=== PATIENT | male | born 1955 | race Caucasian/White ===

== ENCOUNTER 2018-08-30 01:26 | Emergency (ER) | payer BC ==
[2018-08-30] MEDS ORDERED: Famotidine TAB* 20 MG PO ONE (01:49)
--- NOTE | 2018-08-30 01:56 | ED ---
Skin Complaint - HPI Summary HPI Summary: This patient is a 62 year old M presenting to [facility] with a chief complaint of red spots diffuse through his LE bilat, hips, lower back, and torso since 00:15 today. Patient denies difficulty breathing. These symptoms developed after eating [employer] ice cream (vanilla with chocolate, peanuts), leftover chicken and rice. Patient took Benadryl [employer]. He has not been on any new medications since November. - History of Current Complaint Chief Complaint: EDRashSkinAbscess Time Seen by Provider: 08/30/18 01:44 Stated Complaint: POSS ALLERGIC REACTION Hx Obtained From: Patient Onset/Duration: Started Hours Ago - 00:15 today, Still Present Timing: Constant Pain Intensity: 0 Pain Scale Used: 0-10 Numeric Skin Location: Chest, Leg, Other: - Back Character: Hives, Redness Associated Signs & Symptoms: Difficulty Breathing - Denies - Allergy/Home Medications Allergies/Adverse Reactions: Allergies Allergy/AdvReac Type Severity Reaction Status Date / Time Penicillins Allergy Severe Unknown Verified 02/01/18 09:00 Reaction Details PMH/Surg Hx/FS Hx/Imm Hx Endocrine/Hematology History: Denies: Hx Diabetes Cardiovascular History: Reports: Hx Hypertension, Other Cardiovascular Problems/ Disorders - HLD Infectious Disease History: No Infectious Disease History: Denies: Traveled Outside the [place] in Last 30 Days - Family History Known Family History: Positive: Cardiac Disease, Hypertension, Other - Dementia (mild and late) - Social History Alcohol Use: None Substance Use Type: Reports: None Smoking Status (MU): Never Smoked Tobacco Review of Systems Negative: Shortness Of Breath Positive: Rash - Red hives diffuse through his LE bilat, hips, lower back, and torso All Other Systems Reviewed And Are Negative: Yes Physical Exam - Summary Physical Exam Summary: Appearance: Well appearing, no pain distress Skin: 3-4 scattered urticaria Head/face: normal Eyes: EOMI, RACHEL ENT: mucous membranes moist Neck: supple, non-tender Respiratory: CTA, breath sounds present Cardiovascular: RRR, pulses symmetrical Abdomen: non-tender, soft Bowel Sounds: present Musculoskeletal: normal, strength/ROM intact Neuro: normal, sensory motor intact, A&Ox3 Triage Information Reviewed: Yes Vital Signs On Initial Exam: Initial Vitals Temp Pulse Resp BP Pulse Ox 97.8 F 84 20 163/91 96 08/30/18 01:29 08/30/18 01:29 08/30/18 01:29 08/30/18 01:29 08/30/18 01:29 Vital Signs Reviewed: Yes Diagnostics - Vital Signs Vital Signs Temp Pulse Resp BP Pulse Ox 08/30/18 01:29 97.8 F 84 20 163/91 96 - Laboratory Lab Statement: Any lab studies that have been ordered have been reviewed, and results considered in the medical decision making process. Course/Dx - Course Course Of Treatment: Nurse's note reviewed. Patient with 3 or 4 urticaria that were worse prior to taking Benadryl. Had ice cream with peanuts in it. This is possible allergen. Patient will avoid. Referred to primary for allergy testing. Pepcid here, continue same at home. Mild symptoms. - Differential Diagnoses - Skin Complaint Differential Diagnoses: Drug Rash, Local Allergic Reaction, Medication; Adverse Reaction, Urticaria - Diagnoses Provider Diagnoses: Urticaria, Elevated blood pressure reading Discharge - Sign-Out/Discharge Documenting (check all that apply): Patient Departure - D/C - Discharge Plan Condition: Improved Disposition: HOME Prescriptions: Famotidine TAB* [Pepcid 20 MG TAB*] 20 mg PO BID PRN #20 tab PRN Reason: allergy symptoms/hives Patient Education Materials: Urticaria (ED) Referrals: Ally Gurrola [Primary Care Provider] - Additional Instructions: Call your doctor first thing in the morning to schedule prompt follow-up. You may need allergy testing. Avoid peanuts. Return if worse, throat, lip or tongue swelling, difficulty breathing, worse or other concerns. - Billing Disposition and Condition Condition: IMPROVED Disposition: Home - Attestation Statements Document Initiated by Michelleibe: Yes Documenting Scribe: Blaine Kimble Provider For Whom Michelleibe is Documenting (Include Credential): Adalberto Delarosa MD Scribe Attestation: Blaine Srinivasan scribed for Adalberto Delarosa MD on 08/30/18 at 0340. Scribe Documentation Reviewed: Yes Provider Attestation: The documentation as recorded by the Blaine bridges accurately reflects the service I personally performed and the decisions made by me, Adalberto Delarosa MD Status of Scribe Document: Viewed
[2018-08-30 01:58] VITALS: BP 163/99
== END 2018-08-30 01:58 | disposition home or self-care (01) ==
LOC: ED 01:26
DX: L50.9 Urticaria, unspecified (principal); I10 Essential (primary) hypertension; E78.5 Hyperlipidemia, unspecified; Z88.0 Allergy status to penicillin
CPT/HCPCS: 99282; A9270-GY

== ENCOUNTER → 2018-09-08 09:02 | Emergency (ER) | payer BC ==
[~2018-09-08 09:02] MED LIST: Iodixanol* (CONTRAST) 320 MG/ML 100 ML SDV IV ONE
--- OUTSIDE RECORDS SUMMARY | 2018-09-08 09:32 | XMS REPORT | Continuity of Care Document ---
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 Payers Type Date Identification Numbers Payment Provider Subscriber Policy Number: [id number] [facility] Ppo [employer]honathan Hdz Group Number: [id number] [address] [id number] PayID: [id number] [place] [address] Advance Directives Description No Information Available Problems Date Description Provider Status Onset: 03/22/2011 Benign essential hypertension Tenzin Schultz MD Active Onset: 03/22/2011 Mixed hyperlipidemia Tenzin Schultz MD Active Onset: 10/23/2013 Impaired fasting glycaemia Emma Tavarez MD Active Onset: 06/14/2014 Hemorrhoids Emma Tavarez MD Active Onset: 07/10/2015 Essential hypertension Emma Tavarez MD Active Onset: 03/22/2011 Gastroesophageal reflux disease Tenzin Schultz MD Inactive Inactive: 03/06/2014 Onset: 10/23/2013 Idiopathic peripheral neuropathy Emma Tavarez MD Resolved Resolved: 11/30/2013 Family History Date Family Member(s) Problem(s) Comments Father due to Stroke () Father due to Hypertension () : (2006) (age 88 Father due to Heart Disease Years) Mother Allergies Mother 94 Mother Hypertension Mother Hypothyroidism Mother Asthma Children All A&W. 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 Trying to improve Type/Frequency exercise routine. Allergies, Adverse Reactions, Alerts Date Description Reaction Status Severity Comments 08/25/2007 Penicillin Active Medications Medication Date Status Form Strength Qnty SIG Indications Ordering Provider Proctosol HC 07/26 Active Cream 2.5% 28.35 apply per 0gm rectum Ally bid-qid as Valery RN MS needed [employer] hemorrhoids Alprazolam 10/12 Active Tablets 0.5mg 20tab 09/13-1 by G47.00 s mouth as Ally needed for Valery RN MS sleep [employer] Clotrimazole/Be 10/12 Active Cream 1-0.05% 15gm apply twice B35.3 , tamethasone a day as Ally Dipropionate needed Valery RN MS toFEET till [employer] gone Atorvastatin 09/24 Active Tablets 10mg 45tab Take 09/13 E78.2 Calcium s Tablet By Ally Mouth Every C, RN MS Day [employer] Metformin HCL 09/07 Active Tablets ER 500mg 180ta Take 1 R73.01 , 24HR bs Tablet By Ally Mouth Two Valery RN MS Times Daily [employer] Loratadine 09/21 Active Tablets 10mg 90tab 1 po qd. J30.9 s Emma Bonner MD Cozaar 01/12 Active Tablets 50mg 90tab Take 1 I10 s Tablet By Ally Mouth Every C, RN MS Day [employer] Omeprazole Active Capsules DR 40mg 90cap 1 by mouth s every day Ally Rasmussen RN MS [employer] Hydrocortisone 07/26 Hx Cream 2.5% 30gm apply to area 2-3 Ally - times daily OLGA Rasmussen MS 07/26 x 10 days [employer] Fluticasone 09/24 Hx Suspension 50mcg/Act 1unit 1 spray b/l [place], s nostrils Emma - twice a day, MD Kailey 01/28 then january wean to 1 spray everyday, until sx resolution Crestor 01/13 Hx Tablets 5mg 1 by mouth 272.2 every other Emma - day - free MD Kailey 07/10 Zostavax 06/13 Hx Solution [id number]/ 1unit 0.65cc sc x1 Rec 0.65ML s Emma Bonner MD 07/11 Zetia 12/04 Hx Tablets 10mg 30tab 1 tab po s qday (not to Emma - fill only to MD Kailey 03/06 check the cost of copay) Welchol 11/30 Hx Packet 3.75gm 30uni 1 qnoon or ts qsupper (at Emma - least 4 hr MD Kailey 03/05 after metformin administrati on) Metformin HCL 04/25 Hx Tablets ER 750mg 60tab Take 1 Trab, 24HR s tablet by Tenzin - mouth daily 09/07 for 2 weeks, then 2 tablets daily Proctocream-HC 09/21 Hx Cream 2.5% 60gm apply twice [place] a day as Ally Rasmussen RN MS 07/26 [employer] Prilosec OTC 09/[address] 20mg OTC 1 po qd prn 787.20 Emma Bonner MD 03/06 530.81 Simvastatin 09/02/2006 - Hx Tablets 40mg 90tabs 1 po qd 272.2 Emma Tavarez 11/30/2013 MD Kailey Sonata 08/23/2005 - Hx Capsules 5mg 30caps 1 qhs prn 780.50 Trabout, 01/29/2016 sleep MD Tenzin Glucosamine/Clarke 08/23/2005 - Hx otc Trabout, droiti 09/21/2010 MD Tenzin Zyrtec 01/12/2005 - Hx Tablets 10mg 90tabs 1 po qd Trabout, 09/21/2010 MD Tenzin Proctocream HC 01/12/2005 - Hx Cream 2.5% 30gm apply bid Trabout, 09/21/2010 prney Dave MD Astelin Nasal 01/12/2005 - Hx Solution 137mcg 3Units 2 sprays Trabout, Lewis 09/21/2010 each nare cuco Dave MD Immunizations CPT Code Status Date Vaccine Lot # [id number] Given 06/26/2018 Influenza Vac, 3 Yrs & Older, Quadrivalent, [place], [place] Use 49[address] Given 06/18/2017 Afluria Or Fluvirin Flu Vac Intramuscular 59030 Given 06/30/2016 Influenza Vac, 3 Yrs & Older, Quadrivalent, Split, [place] Use 55348 Given 06/18/2016 Influenza Vac, 3 Yrs & Older, Quadrivalent, Split, Im Use 61999 Given 08/01/2015 Zoster (Zostavax) 54324 Given 03/05/2014 Pneumococcal 23 Immunization Adult Or [id number] Immunosuppressed Patient 34295 Given 10/02/2012 Tdap (Adacel) Ages 7 And Above Only [id number] 44293 Given 09/02/2000 Influenza Virus Vaccine, Whole Virus, Intramuscular Or Jet Inj. 91216 Given 06/26/1999 Immunization Td 7 Yrs Or Older Vital Signs Date Vital Result Comment 08/31/2018 7:50am Weight 224.38 lb Heart Rate 78 /min BP Systolic 147 mmHg BP Diastolic 85 mmHg Height 74 inches 6'2" BMI (Body Mass Index) 28.8 kg/m2 04/14/2018 8:01am Weight 220.25 lb Heart Rate 67 /min BP Systolic 181 mmHg BP Diastolic 83 mmHg BP Systolic Recheck 147 mmHg BP Diastolic Recheck 77 mmHg Height 74 inches 6'2" BMI (Body Mass Index) 28.3 kg/m2 10/12/2017 11:05am Weight 220.00 lb Heart Rate 64 /min BP Systolic 120 mmHg BP Diastolic 74 mmHg Height 74 inches 6'2" BMI (Body Mass Index) 28.2 kg/m2 02/17/2017 1:53pm Weight 218.50 lb Heart Rate 70 /min BP Systolic 137 mmHg BP Diastolic 74 mmHg Height 74 inches 6'2" BMI (Body Mass Index) 28.1 kg/m2 08/12/2016 8:07am Weight 216.12 lb Heart Rate 72 /min BP Systolic 144 mmHg BP Diastolic 80 mmHg Height 74 inches 6'2" BMI (Body Mass Index) 27.7 kg/m2 01/29/2016 8:11am Weight 214.12 lb Heart Rate 63 /min BP Systolic 132 mmHg BP Diastolic 84 mmHg Height 74 inches 6'2" BMI (Body Mass Index) 27.5 kg/m2 07/10/2015 9:21am Weight 212.31 lb Heart Rate 79 /min BP Systolic 127 mmHg BP Diastolic 75 mmHg Height 74 inches 6'2" BMI (Body Mass Index) 27.3 kg/m2 12/23/2014 8:35am Weight 213.00 lb Heart Rate 66 /min BP Systolic 123 mmHg BP Diastolic 72 mmHg Height 74 inches 6'2" BMI (Body Mass Index) 27.3 kg/m2 09/24/2014 8:15am Weight 211.38 lb Heart Rate 81 /min BP Systolic 124 mmHg BP Diastolic 78 mmHg Height 74 inches 6'2" BMI (Body Mass Index) 27.1 kg/m2 06/13/2014 9:57am Weight 211.00 lb Heart Rate 69 /min BP Systolic 128 mmHg BP Diastolic 79 mmHg Height 74 inches 6'2" BMI (Body Mass Index) 27.1 kg/m2 03/05/2014 8:28am Weight 209.00 lb Heart Rate 66 /min BP Systolic 123 mmHg BP Diastolic 76 mmHg Height 74 inches 6'2" BMI (Body Mass Index) 26.8 kg/m2 10/23/2013 8:10am Weight 212.00 lb Heart Rate 66 /min BP Systolic 149 mmHg BP Diastolic 91 mmHg Height 74 inches 6'2" BMI (Body Mass Index) 27.2 kg/m2 Urine Dipstick - Blood 1+ Urine Dipstick - Protein NEGATIVE Urine Dipstick - Glucose NEGATIVE 04/23/2013 8:50am Weight 216.00 lb Heart Rate 68 /min BP Systolic 130 mmHg BP Diastolic 75 mmHg 10/02/2012 8:02am Weight 215.00 lb Height 74 inches 6'2" BMI (Body Mass Index) 27.6 kg/m2 03/27/2012 8:14am Weight 220.00 lb Heart Rate 65 /min BP Systolic 133 mmHg BP Diastolic 76 mmHg 09/27/2011 8:02am Weight 222.00 lb Heart Rate 68 /min BP Systolic 128 mmHg BP Diastolic 76 mmHg Height 75 inches 6'3" BMI (Body Mass Index) 27.7 kg/m2 03/22/2011 8:07am Weight 216.00 lb Heart Rate 65 /min BP Systolic 125 mmHg BP Diastolic 74 mmHg 09/21/2010 8:17am Weight 219.00 lb Heart Rate 69 /min BP Systolic 138 mmHg BP Diastolic 82 mmHg Height 75 inches 6'3" BMI (Body Mass Index) 27.4 kg/m2 Urine Dipstick - Blood TRACE Urine Dipstick - Protein NEGATIVE Urine Dipstick - Glucose NEGATIVE 03/27/2010 8:36am Weight 214.00 lb Heart Rate 61 /min BP Systolic 117 mmHg BP Diastolic 69 mmHg 11/28/2009 8:56am Weight 219.00 lb Heart Rate 70 /min BP Systolic 118 mmHg BP Diastolic 70 mmHg 11/14/2009 9:01am Weight 220.00 lb Heart Rate 64 /min BP Systolic 129 mmHg BP Diastolic 82 mmHg Height 75 inches 6'3" BMI (Body Mass Index) 27.5 kg/m2 Urine Dipstick - Blood 1+ Urine Dipstick - Protein NEGATIVE Urine Dipstick - Glucose NEGATIVE 08/30/2008 9:30am Weight 219.38 lb Heart Rate 74 /min BP Systolic 135 mmHg BP Diastolic 79 mmHg Height 74.5 inches 6'2.50" BMI (Body Mass Index) 27.8 kg/m2 Urine Dipstick - Blood 1+ Urine Dipstick - Protein NEGATIVE Urine Dipstick - Glucose NEGATIVE 08/25/2007 9:19am Weight 213.00 lb Heart Rate 70 /min BP Systolic 135 mmHg BP Diastolic 75 mmHg Height 74.5 inches 6'2.50" BMI (Body Mass Index) 27.0 kg/m2 Urine Dipstick - Blood 1+ Urine Dipstick - Protein NEGATIVE Urine Dipstick - Glucose NEGATIVE 05/12/2007 9:08am Weight 215.00 lb Heart Rate 67 /min BP Systolic 119 mmHg BP Diastolic 70 mmHg Height 74.5 inches 6'2.50" BMI (Body Mass Index) 27.2 kg/m2 08/26/2006 11:35am Weight 216.00 lb Heart Rate 70 /min BP Systolic 146 mmHg BP Diastolic 82 mmHg Height 74.5 inches 6'2.50" BMI (Body Mass Index) 27.4 kg/m2 Urine Dipstick - Blood NEGATIVE Urine Dipstick - Protein NEGATIVE Urine Dipstick - Glucose NEGATIVE 08/23/2005 9:17am Weight 218.00 lb Heart Rate 73 /min BP Systolic 123 mmHg BP Diastolic 79 mmHg Urine Dipstick - Blood NEGATIVE Urine Dipstick - Protein NEGATIVE Urine Dipstick - Glucose NEGATIVE Results Test Date Facility Test Result H/L Range Note Lipid 04/14/2018 [facility] Cholesterol 164 mg/dL 50-199 Triglycerides 196 mg/dL 30-200 HDL 33 mg/dL - 1 Chol/ HDL Ratio 5.0 ratio 4.0-6.7 VLDL 39 mg/dL High 2-29 LDL (Calc) 92 mg/dL 20-99 2 [facility] 6.4 % High 4.1-5.9 Estimated Average Glucose Calc 137 mg/dL 71-140 Comprehensive Met Panel-[facility] 04/14/2018 [facility] Sodium 141 mmol/L 135- 146 3 Potassium 4.4 mmol/L 3.5-5.2 Chloride# 102 mmol/L 97-110 4 Carbon Dioxide 31 mmol/L 24-34 Glucose 110 mg/dL High 70-105 BUN 14 mg/dL 6-26 Creatinine 1.2 mg/dL 0.5-1.4 Calcium 9.6 mg/dL 8.5-10.2 Total Protein 6.6 g/dL 6.0-8.0 Albumin 4.6 g/dL 3.6-4.9 Globulin 2.0 g/dL 2.0-3.5 A/G Ratio 2.3 Ratio High 1.0-2.2 Total Bilirubin 0.7 mg/dL 0.1-1.3 Alkaline Phosphatase 64 U/L 24-140 Alt 25 U/L 3-42 Ast 18 U/L 8-42 Kay Egfr >60 >60 5 Non Kay Egfr >60 >60 6 Anion Gap 8 mmol/L 5-15 7 Hemoglobin A1c 10/12/2017 [facility] Hemoglobin A1c 6.2 % High 4.1-5.9 Estimated Average Glucose Calc 131 mg/dL 71-140 Laboratory test 10/12/2017 [facility] Hepatitis C NON REACTIVE Non Reactive 8 finding Virus Antibody S/[facility]atio([facility] Lipid 10/12/2017 [facility] Cholesterol 183 mg/dL 50-199 Triglycerides 220 mg/dL High 30-200 HDL 38 mg/dL 29-71 9 Chol/ HDL Ratio 4.8 ratio 4.0-6.7 VLDL 44 mg/dL High 2-29 LDL (Calc) 101 mg/dL High 20-99 10 Comprehensive Met Panel-[facility] 10/12/2017 [facility] Sodium 142 mmol/L 135- 146 11 Potassium 4.8 mmol/L 3.5-5.2 Chloride# 100 mmol/L 97-110 12 Carbon Dioxide 30 mmol/L 24-34 Glucose 102 mg/dL 70-105 BUN 13 mg/dL 6-26 Creatinine 1.0 mg/dL 0.5-1.4 Calcium 10.0 mg/dL 8.5-10.2 Total Protein 6.8 g/dL 6.0-8.0 Albumin 5.0 g/dL High 3.6-4.9 Globulin 1.8 g/dL Low 2.0-3.5 A/G Ratio 2.8 Ratio High 1.0-2.2 Total Bilirubin 0.8 mg/dL 0.1-1.3 Alkaline Phosphatase 63 U/L 24-140 Alt 18 U/L 3-42 Ast 15 U/L 8-42 Kay Egfr >60 >60 13 Non Kay Egfr >60 >60 14 Anion Gap 12 mmol/L 7-16 15 CBC With Auto Diff 10/12/2017 [facility] WBC 8.7 K/uL 4.1-11.0 RBC 5.28 M/uL 4.60-6.10 Hemoglobin 15.6 gm/dL 13.5-18.0 Hematocrit 45.7 % 41.0-53.0 MCV 86.5 fL 80.0-97.0 MCH 29.6 pg 27.0-32.0 MCHC 34.2 g/dL 32.0-36.0 RDW 13.8 % 11.5-14.5 PLT Count 190 K/ul 140-400 MPV 9.2 FL 7.1-10.7 Neutrophil 56.6 % 35.0-75.0 Lymphocyte 31.8 % 16.0-52.0 Monocyte 8.3 % 2.0-10.0 Eosinophil 2.7 % 0.0-5.0 Basophil 0.6 % 0.0-4.0 Abs Neutrophils 4.9 K/uL 2.1-8.0 Abs Lymphocytes 2.8 K/uL 0.8-5.5 Abs Monocytes 0.7 K/uL 0.1-1.0 Abs Eosinophils 0.2 K/uL 0.0-0.5 Abs Basophils 0.1 K/uL 0.0-0.3 Laboratory test finding 02/22/2017 [facility] PSA 0.750 ng/mL 0.000-4.000 16, 17 Comprehensive Metabolic 02/22/2017 [facility] Sodium 141 mmol/L 135-146 18 (CMP) Potassium 4.7 mmol/L 3.5-5.2 Chloride# 103 mmol/L 97-110 19 Carbon Dioxide 28 mmol/L 24-34 Glucose 110 mg/dL High 70-105 BUN 13 mg/dL 6-26 Creatinine 1.1 mg/dL 0.5-1.4 Calcium 9.5 mg/dL 8.5-10.2 Total Protein 6.3 g/dL 6.0-8.0 Albumin 4.5 g/dL 3.6-4.9 Globulin 1.8 g/dL Low 2.0-3.5 A/G Ratio 2.5 Ratio High 1.0-2.2 Total Bilirubin 1.0 mg/dL 0.1-1.3 Alkaline Phosphatase 59 U/L 24-140 Alt 22 U/L 3-42 Ast 19 U/L 8-42 Kay Egfr >60 >60 20 Non Kay Egfr >60 >60 21 Anion Gap 15 mmol/L 7-16 22 Lipid 02/22/2017 [facility] Cholesterol 145 mg/dL 50-199 Triglycerides 127 mg/dL 30-200 HDL 31 mg/dL 23 Chol/ HDL Ratio 4.7 ratio 4.0-6.7 VLDL 25 mg/dL 2-29 LDL (Calc) 89 mg/dL -99 24 Hemoglobin A1c 02/22/2017 [facility] Hemoglobin A1c 6.1 % High 4.1-5.9 Estimated Average Glucose Calc 128 71-140 Lipid 08/12/2016 [facility] Cholesterol 180 mg/dL 50-199 Triglycerides 156 mg/dL 30-200 HDL 35 mg/dL 25 Chol/ HDL Ratio 5.1 ratio 4.0-6.7 VLDL 31 mg/dL High 2-29 LDL (Calc) 114 mg/dL High 99 26 Comprehensive Metabolic (CMP) 08/12/2016 [facility] Sodium 141 mmol/L 134- 142 Potassium 5.1 mmol/L 3.5-5.2 Chloride 101 mmol/L 97-109 Carbon Dioxide 29 mmol/L 24-34 Glucose 112 mg/dL High 70-105 BUN 15 mg/dL 6-26 Creatinine 1.0 mg/dL 0.5-1.4 Calcium 9.6 mg/dL 8.5-10.2 Total Protein 7.0 g/dL 6.0-8.0 Albumin 4.8 g/dL 3.6-4.9 Globulin 2.2 g/dL 2.0-3.5 A/G Ratio 2.2 Ratio 1.0-2.2 Total Bilirubin 0.7 mg/dL 0.1-1.3 Alkaline Phosphatase 57 U/L 24-140 Alt 22 U/L 3-42 Ast 23 U/L 8-42 Anion Gap 16 mmol/L High 6-14 Kay Egfr >60 >60 27 Non Kay Egfr >60 >60 28 CBC With Auto Diff 01/08/2016 [facility] WBC 7.5 K/uL 4.1-11.0 RBC 4.96 M/uL 4.60-6.10 Hemoglobin 14.1 gm/dL 13.5-18.0 Hematocrit 43.7 % 41.0-53.0 MCV 88.2 fL 80.0-97.0 MCH 28.5 pg 27.0-32.0 MCHC 32.3 g/dL 32.0-36.0 RDW 14.0 % 11.5-14.5 PLT Count 175 K/ul 140-400 Neutrophil 52.2 % 35.0-75.0 Lymphocyte 37.2 % 16.0-52.0 Monocyte 7.3 % 2.0-10.0 Eosinophil 2.7 % 0.0-5.0 Basophil 0.6 % 0.0-4.0 Abs Neutrophils 3.9 K/uL 2.1-8.0 Abs Lymphocytes 2.8 K/uL 0.8-5.5 Abs Monocytes 0.5 K/uL 0.1-1.0 Abs Eosinophils 0.2 K/uL 0.0-0.5 Abs Basophils 0.0 K/uL 0.0-0.3 Comprehensive Metabolic (CMP) 01/08/2016 [facility] Sodium 140 mmol/L 134- 142 Potassium 5.2 mmol/L 3.5-5.2 Chloride 105 mmol/L 97-109 Carbon Dioxide 27 mmol/L 24-34 Glucose 110 mg/dL High 70-105 BUN 11 mg/dL 6-26 Creatinine 1.0 mg/dL 0.5-1.4 Calcium 9.6 mg/dL 8.5-10.2 Total Protein 6.5 g/dL 6.0-8.0 Albumin 4.3 g/dL 3.6-4.9 Globulin 2.2 g/dL 2.0-3.5 A/G Ratio 2.0 Ratio 1.0-2.2 Total Bilirubin 0.6 mg/dL 0.1-1.3 Alkaline Phosphatase 48 U/L 24-140 Alt 26 U/L 3-42 Ast 19 U/L 8-42 Anion Gap 13 mmol/L 6-14 Kay Egfr >60 >60 29 Non Kay Egfr >60 >60 30 Lipid 01/08/2016 [facility] Cholesterol 140 mg/dL 50-199 Triglycerides 125 mg/dL 30-200 HDL 37 mg/dL 29-71 31 Chol/ HDL Ratio 3.8 ratio Low 4.0-6.7 VLDL 25 mg/dL 2-29 LDL (Calc) 78 mg/dL 20-99 32 Laboratory test finding 01/08/2016 [facility] Hemoglobin A1c 6.3 % High 4.1- 5.9 PSA 0.630 ng/mL 0.000-4.000 33 Laboratory test 01/08/2016 [facility] TSH 1.45 uIU/mL 0.35-4.94 finding Laboratory test 01/08/2016 [facility] Treponema Igg/Igm NEGATIVE (Neg) 34 finding Comprehensive 06/24/2015 [facility] Sodium 141 mmol/L 134-142 Metabolic (CMP) Potassium 4.8 mmol/L 3.5-5.2 Chloride 103 mmol/L 97-109 Carbon Dioxide 32 mmol/L 24-34 Glucose 94 mg/dL 70-105 BUN 10 mg/dL 6-26 Creatinine 1.0 mg/dL 0.5-1.4 Calcium 9.5 mg/dL 8.5-10.2 Total Protein 6.6 g/dL 6.0-8.0 Albumin 4.4 g/dL 3.6-4.9 Globulin 2.2 g/dL 2.0-3.5 A/G Ratio 2.0 Ratio 1.0-2.2 Total Bilirubin 0.8 mg/dL 0.1-1.3 Alkaline Phosphatase 52 U/L 24-140 Alt 25 U/L 3-42 Ast 18 U/L 8-42 Anion Gap 11 mmol/L 6-14 Kay Egfr >60 >60 35 Non Kay Egfr >60 >60 36 Laboratory test finding 06/24/2015 [facility] Hemoglobin A1c 6.1 % High 4.1- 5.9 CBC With Auto Diff 06/24/2015 [facility] WBC 11.2 K/uL High 4.1-11.0 RBC 4.96 M/uL 4.60-6.10 Hemoglobin 14.3 gm/dL 13.5-18.0 Hematocrit 43.7 % 41.0-53.0 MCV 88.1 fL 80.0-97.0 MCH 28.8 pg 27.0-32.0 MCHC 32.7 g/dL 32.0-36.0 RDW 14.1 % 11.5-14.5 PLT Count 182 K/ul 140-400 Neutrophil 61.2 % 35.0-75.0 Lymphocyte 28.0 % 16.0-52.0 Monocyte 8.3 % 2.0-10.0 Eosinophil 1.8 % 0.0-5.0 Basophil 0.7 % 0.0-4.0 Abs Neutrophils 6.8 K/uL 2.1-8.0 Abs Lymphocytes 3.1 K/uL 0.8-5.5 Abmon 0.9 K/uL 0.1-1.0 Abs Eosinophils 0.2 K/uL 0.0-0.5 Abs Basophils 0.1 K/uL 0.0-0.3 Lipid 06/24/2015 [facility] Cholesterol 149 mg/dL 50-199 Triglycerides 177 mg/dL 30-200 HDL 29 mg/dL 29-71 37 Chol/ HDL Ratio 5.1 ratio 4.0-6.7 VLDL 35 mg/dL High 2-29 LDL (Calc) 85 mg/dL 20-99 38 Lipid 12/16/2014 [facility] Cholesterol 153 mg/dL 50-199 39 Triglycerides 165 mg/dL 30-200 HDL 37 mg/dL 29-71 40 Chol/ HDL Ratio 4.1 ratio 4.0-6.7 VLDL 33 mg/dL High 2-29 LDL (Calc) 83 mg/dL 20-99 41 Laboratory test finding 12/16/2014 [facility] 6.0 % High 4.1- 5.9 CBC With Auto Diff 12/16/2014 [facility] WBC 8.0 K/uL 4.1-11.0 RBC 4.91 M/uL 4.60-6.10 Hemoglobin 14.5 gm/dL 13.5-18.0 Hematocrit 43.2 % 41.0-53.0 MCV 88.0 fL 80.0-97.0 MCH 29.6 pg 27.0-32.0 MCHC 33.6 g/dL 32.0-36.0 RDW 13.8 % 11.5-14.5 PLT Count 163 K/ul 140-400 Neutrophil 50.3 % 35.0-75.0 Lymphocyte 38.0 % 16.0-52.0 Monocyte 7.3 % 2.0-10.0 Eosinophil 3.7 % 0.0-5.0 Basophil 0.7 % 0.0-4.0 Abs Neutrophils 4.0 K/uL 2.1-8.0 Abs Lymphocytes 3.0 K/uL 0.8-5.5 Abmon 0.6 K/uL 0.1-1.0 Abs Eosinophils 0.3 K/uL 0.0-0.5 Abs Basophils 0.1 K/uL 0.0-0.3 Comprehensive Metabolic (CMP) 12/16/2014 [facility] Sodium 139 mmol/L 134- 142 Potassium 4.6 mmol/L 3.5-5.2 Chloride 103 mmol/L 97-109 Carbon Dioxide 30 mmol/L 24-34 Glucose 113 mg/dL High 70-105 BUN 15 mg/dL 6-26 Creatinine 1.1 mg/dL 0.5-1.4 Calcium 9.5 mg/dL 8.5-10.2 Total Protein 6.4 g/dL 6.0-8.0 Albumin 4.5 g/dL 3.6-4.9 Globulin 1.9 g/dL Low 2.0-3.5 A/G Ratio 2.4 Ratio High 1.0-2.2 Total Bilirubin 0.6 mg/dL 0.1-1.3 Alkaline Phosphatase 46 U/L 24-140 Alt 24 U/L 3-42 Ast 19 U/L 8-42 Anion Gap 11 mmol/L 6-14 Kay Egfr >60 >60 42 Non Kay Egfr >60 >60 43 CBC With Auto Diff 09/17/2014 [facility] WBC 8.2 K/uL 4.1-11.0 44 RBC 4.92 M/uL 4.60-6.10 Hemoglobin 14.5 gm/dL 13.5-18.0 Hematocrit 42.8 % 41.0-53.0 MCV 86.8 fL 80.0-97.0 MCH 29.4 pg 27.0-32.0 MCHC 33.8 g/dL 32.0-36.0 RDW 14.0 % 11.5-14.5 PLT Count 193 K/ul 140-400 Neutrophil 47.5 % 35.0-75.0 Lymphocyte 42.3 % 16.0-52.0 Monocyte 7.3 % 2.0-10.0 Eosinophil 2.1 % 0.0-5.0 Basophil 0.8 % 0.0-4.0 Abs Neutrophils 3.9 K/uL 2.1-8.0 Abs Lymphocytes 3.5 K/uL 0.8-5.5 Abmon 0.6 K/uL 0.1-1.0 Abs Eosinophils 0.2 K/uL 0.0-0.5 Abs Basophils 0.1 K/uL 0.0-0.3 Comprehensive Metabolic (CMP) 09/17/2014 [facility] Sodium 139 mmol/L 134- 142 Potassium 4.8 mmol/L 3.5-5.2 Chloride 104 mmol/L 97-109 Carbon Dioxide 26 mmol/L 24-34 Glucose 107 mg/dL High 70-105 BUN 14 mg/dL 6-26 Creatinine 1.0 mg/dL 0.5-1.4 Calcium 9.3 mg/dL 8.5-10.2 Total Protein 6.6 g/dL 6.0-8.0 Albumin 4.5 g/dL 3.6-4.9 Globulin 2.1 g/dL 2.0-3.5 A/G Ratio 2.1 Ratio 1.0-2.2 Total Bilirubin 0.7 mg/dL 0.1-1.3 Alkaline Phosphatase 48 U/L 24-140 Alt 17 U/L 3-42 Ast 16 U/L 8-42 Anion Gap 14 mmol/L 6-14 Kay Egfr >60 >60 45 Non Kay Egfr >60 >60 46 Lipid 09/17/2014 [facility] Cholesterol 216 mg/dL High 50-199 Triglycerides 225 mg/dL High 30-200 HDL 29 mg/dL 29-71 47 Chol/ HDL Ratio 7.4 ratio High 4.0-6.7 VLDL 45 mg/dL High 2-29 LDL (Calc) 142 mg/dL High 20-99 48 Laboratory test finding 09/17/2014 [facility] Hemoglobin A1c 6.0 % High 4.1- 5.9 Lipid 06/13/2014 [facility] Cholesterol 209 mg/dL High 50-199 49 Triglycerides 218 mg/dL High 30-200 HDL 38 mg/dL - 50 Chol/ HDL Ratio 5.5 ratio 4.0-6.7 VLDL 44 mg/dL High 2-29 LDL (Calc) 127 mg/dL High 20-99 51 Laboratory test finding 06/13/2014 [facility] Hemoglobin A1c 5.9 % 4.1-5.9 CBC With Auto Diff 06/13/2014 [facility] WBC 8.7 K/uL 4.1-11.0 RBC 5.17 M/uL 4.60-6.10 Hemoglobin 15.2 gm/dL 13.5-18.0 Hematocrit 46.0 % 41.0-53.0 MCV 88.8 fL 80.0-97.0 MCH 29.4 pg 27.0-32.0 MCHC 33.1 g/dL 32.0-36.0 RDW 14.0 % 11.5-14.5 PLT Count 201 K/ul 140-400 Neutrophil 51.3 % 35.0-75.0 Lymphocyte 37.5 % 16.0-52.0 Monocyte 7.8 % 2.0-10.0 Eosinophil 2.7 % 0.0-5.0 Basophil 0.7 % 0.0-4.0 Abs Neutrophils 4.5 K/uL 2.1-8.0 Abs Lymphocytes 3.3 K/uL 0.8-5.5 Abmon 0.7 K/uL 0.1-1.0 Abs Eosinophils 0.2 K/uL 0.0-0.5 Abs Basophils 0.1 K/uL 0.0-0.3 Comprehensive Metabolic (CMP) 06/13/2014 [facility] Sodium 139 mmol/L 134- 142 Potassium 4.5 mmol/L 3.5-5.2 Chloride 102 mmol/L 97-109 Carbon Dioxide 29 mmol/L 24-34 Glucose 95 mg/dL 70-105 BUN 11 mg/dL 6-26 Creatinine 1.0 mg/dL 0.5-1.4 Calcium 9.6 mg/dL 8.5-10.2 Total Protein 6.7 g/dL 6.0-8.0 Albumin 4.6 g/dL 3.6-4.9 Globulin 2.1 g/dL 2.0-3.5 A/G Ratio 2.2 Ratio 1.0-2.2 Total Bilirubin 0.8 mg/dL 0.1-1.3 Alkaline Phosphatase 50 U/L 24-140 Alt 18 U/L 3-42 Ast 19 U/L 8-42 Anion Gap 13 mmol/L 6-14 Kay Egfr >60 >60 52 Non Kay Egfr >60 >60 53 CBC With Auto Diff 03/05/2014 [facility] WBC 7.8 K/uL 4.1-11.0 RBC 5.01 M/uL 4.60-6.10 Hemoglobin 14.7 gm/dL 13.5-18.0 Hematocrit 42.9 % 41.0-53.0 MCV 85.6 fL 80.0-97.0 MCH 29.3 pg 27.0-32.0 MCHC 34.3 g/dL 32.0-36.0 RDW 13.9 % 11.5-14.5 PLT Count 167 K/ul 140-400 Neutrophil 55.6 % 35.0-75.0 Lymphocyte 34.3 % 16.0-52.0 Monocyte 7.1 % 2.0-10.0 Eosinophil 2.4 % 0.0-5.0 Basophil 0.6 % 0.0-4.0 Abs Neutrophils 4.3 K/uL 2.1-8.0 Abs Lymphocytes 2.7 K/uL 0.8-5.5 Abmon 0.6 K/uL 0.1-1.0 Abs Eosinophils 0.2 K/uL 0.0-0.5 Abs Basophils 0.0 K/uL 0.0-0.3 Comprehensive Metabolic (CMP) 03/05/2014 [facility] Sodium 139 mmol/L 134- 142 Potassium 4.4 mmol/L 3.5-5.2 Chloride 104 mmol/L 97-109 Carbon Dioxide 27 mmol/L 24-34 Glucose 100 mg/dL 70-105 BUN 13 mg/dL 6-26 Creatinine 0.9 mg/dL 0.5-1.4 Calcium 9.2 mg/dL 8.5-10.2 Total Protein 6.4 g/dL 6.0-8.0 Albumin 4.3 g/dL 3.6-4.9 Globulin 2.1 g/dL 2.0-3.5 A/G Ratio 2.0 Ratio 1.0-2.2 Total Bilirubin 0.8 mg/dL 0.1-1.3 Alkaline Phosphatase 50 U/L 24-140 Alt 17 U/L 3-42 Ast 18 U/L 8-42 Anion Gap 12 mmol/L - Kay Egfr >60 >60 54 Non Kay Egfr >60 >60 55 Lipid 03/05/2014 [facility] Cholesterol 186 mg/dL 50-199 Triglycerides 161 mg/dL 30-200 HDL 36 mg/dL 29-71 56 Chol/ HDL Ratio 5.2 ratio 4.0-6.7 VLDL 32 mg/dL High 2-29 LDL (Calc) 118 mg/dL High 20-99 57 Laboratory test finding 03/05/2014 [facility] Hemoglobin A1c 6.1 % High 4.1- 5.9 Laboratory test finding 10/24/2013 [facility] Lyme Igm/Igg AB NEGATIVE (Neg ) 58 Treponema Igg/Igm NEGATIVE (Neg) 59 Serum Prot Elect -RL 10/24/2013 [facility] Total Protein 7.2 g/dL (6.4-8.2 ) Total Protein Epp 7.2 GM/DL (6.4-8.2) Albumin Calc 4.7 GM/DL (3.9-5.1) Alpha 1 Calc 0.2 GM/DL (0.1-0.3) Alpha 2 Calc 0.8 GM/DL (0.4-1.0) Beta Calc 0.9 GM/DL (0.5-1.1) Gamma Calc 0.6 GM/DL (0.4-1.2) Monoclonal Calc NO MONOCLONAL ID <SEE NOTE> GM/DL ([place]) 60 Albumin Percent 65.9 % (58.8-69.6) Alpha 1 Percent 2.6 % (1.6-3.0) Alpha 2 Percent 11.0 % (7.2-13.2) Beta Percent 11.8 % (8.0-14.7) Gamma Percent 8.7 % (7.3-16.4) Interpretation: NORMAL PATTERN 61 Comprehensive Metabolic (CMP) 10/23/2013 [facility] Sodium 139 mmol/L 134- 142 Potassium 4.9 mmol/L 3.5-5.2 Chloride 102 mmol/L 97-109 Carbon Dioxide 34 mmol/L 24-34 Glucose 111 mg/dL High 70-105 BUN 14 mg/dL 6-26 Creatinine 1.0 mg/dL 0.5-1.4 Calcium 9.7 mg/dL 8.5-10.2 Total Protein 6.8 g/dL 6.0-8.0 Albumin 4.8 g/dL 3.6-4.9 Globulin 2.0 g/dL 2.0-3.5 A/G Ratio 2.4 Ratio High 1.0-2.2 Total Bilirubin 0.8 mg/dL 0.1-1.3 Alkaline Phosphatase 49 U/L 24-140 Alt 25 U/L 3-42 Ast 22 U/L 8-42 Anion Gap 8 mmol/L 6-14 Kay Egfr >60 >60 62 Non Kay Egfr >60 >60 63 [facility] 4.1-11.0 RBC 5.18 M/uL 4.60-6.10 Hemoglobin 15.4 gm/dL 13.5-18.0 Hematocrit 45.4 % 41.0-53.0 MCV 87.7 fL 80.0-97.0 MCH 29.7 pg 27.0-32.0 MCHC 33.9 g/dL 32.0-36.0 RDW 13.8 % 11.5-14.5 PLT Count 169 K/ul 140-400 Neutrophil 54.7 % 35.0-75.0 Lymphocyte 34.1 % 16.0-52.0 Monocyte 9.0 % 2.0-10.0 Eosinophil 1.8 % 0.0-5.0 Basophil 0.4 % 0.0-4.0 Abs Neutrophils 4.5 K/uL 2.1-8.0 Abs Lymphocytes 2.8 K/uL 0.8-5.5 Abmon 0.7 K/uL 0.1-1.0 Abs Eosinophils 0.2 K/uL 0.0-0.5 Abs Basophils 0.0 K/uL 0.0-0.3 Laboratory test 10/23/2013 [facility] Hemoglobin A1c 6.1 % High 4.1-5.9 finding Microalb/Creat Panel 10/23/2013 [facility] Creatinine, Urine 243.3 mg/dL Microalb/Creat Urine 3.29 ug/mgCreat 0.00-30.00 Microalbumin 8.0 ug/ml 0.0-20.0 Lipid 10/23/2013 [facility] Cholesterol 148 mg/dL 50-199 Triglycerides 150 mg/dL 30-200 HDL 34 mg/dL 29-71 64 Chol/ HDL Ratio 4.4 ratio 4.0-6.7 VLDL 30 mg/dL High 2-29 LDL (Calc) 84 mg/dL 20-99 65 Laboratory test finding 10/23/2013 [facility] Vitamin B12 574 pg/mL 180- 914 PSA 0.52 ng/mL 0.00-4.00 66 Esr 2 mm/hr 0-15 Lisandra Screen Neg Neg Laboratory test finding 04/23/2013 [facility] Hemoglobin A1c 6.4 % High 4.1- 5.9 Lipid Treatment 04/23/2013 [facility] Cholesterol 134 mg/dL 50-199 Triglycerides 124 mg/dL 30-200 HDL 38 mg/dL 29-71 67 Chol/ HDL Ratio 3.5 ratio Low 4.0-6.7 VLDL 25 mg/dL 2-29 LDL (Calc) 71 mg/dL 20-129 68 Alt 23 U/L 3-42 Ast 20 U/L 8-42 Comprehensive Metabolic (CMP) 10/02/2012 [facility] Sodium 140 mmol/L 134- 142 Potassium 4.8 mmol/L 3.5-5.2 Chloride 104 mmol/L 97-109 Carbon Dioxide 32 mmol/L 24-34 Glucose 107 mg/dL High 70-105 BUN 13 mg/dL 6-26 Creatinine 1.0 mg/dL 0.5-1.4 Calcium 9.5 mg/dL 8.5-10.2 Total Protein 6.8 g/dL 6.0-8.0 Albumin 4.7 g/dL 3.6-4.9 Globulin 2.1 g/dL 2.0-3.5 A/G Ratio 2.2 Ratio 1.0-2.2 Total Bilirubin 0.7 mg/dL 0.1-1.3 Alkaline Phosphatase 53 U/L 24-140 Alt 20 U/L 3-42 Ast 20 U/L 8-42 Anion Gap 9 mmol/L 6-14 Kay Egfr >60 >60 69 Non Kay Egfr >60 >60 70 CBC With Auto Diff 10/02/2012 [facility] WBC 7.8 K/uL 4.1-11.0 RBC 4.92 M/uL 4.60-6.10 Hemoglobin 14.6 gm/dL 13.5-18.0 Hematocrit 43.1 % 41.0-53.0 MCV 87.7 fL 80.0-97.0 MCH 29.8 pg 27.0-32.0 MCHC 34.0 g/dL 32.0-36.0 RDW 13.8 % 11.5-14.5 PLT Count 161 K/ul 140-400 Neutrophil 64.2 % 35.0-75.0 Lymphocyte 26.4 % 16.0-52.0 Monocyte 7.4 % 2.0-10.0 Eosinophil 1.5 % 0.0-5.0 Basophil 0.5 % 0.0-4.0 Abs Neutrophils 5.0 K/uL 2.1-8.0 Abs Lymphocytes 2.1 K/uL 0.8-5.5 Abs Monocytes 0.6 K/uL 0.1-1.0 Abs Eosinophils 0.1 K/uL 0.0-0.5 Abs Basophils 0.0 K/uL 0.0-0.3 Lipid 10/02/2012 [facility] Cholesterol 144 mg/dL 50-199 Triglycerides 165 mg/dL 30-200 HDL 34 mg/dL - 71 Chol/ HDL Ratio 4.2 ratio 4.0-6.7 VLDL 33 mg/dL High LDL (Calc) 77 mg/dL 20-129 72 Non HDL Cholesterol 110 mg/dL 20-129 73 Laboratory test finding 10/02/2012 [facility] PSA 0.51 ng/mL 0.00-4.00 74 TSH 1.43 uIU/mL 0.34-5.60 Hemoglobin A1c 6.3 % High 4.1-5.9 Laboratory test finding 03/27/2012 [facility] Free T4 0.69 ng/dL 0.50-1.60 TSH 1.22 uIU/mL 0.34-5.60 Lipid 03/27/2012 [facility] Cholesterol 128 mg/dL 50-199 Triglycerides 144 mg/dL 30-200 HDL 31 mg/dL 75 Chol/ HDL Ratio 4.1 ratio 4.0-6.7 VLDL 29 mg/dL 2- LDL (Calc) 68 mg/dL 20-129 76 Comprehensive Metabolic (CMP) 03/27/2012 [facility] Sodium 138 mmol/L 134- 142 Potassium 4.8 mmol/L 3.5-5.2 Chloride 104 mmol/L 97-109 Carbon Dioxide 31 mmol/L 24-34 Glucose 116 mg/dL High 70-105 BUN 15 mg/dL 6-26 Creatinine 1.0 mg/dL 0.5-1.4 Calcium 9.3 mg/dL 8.5-10.2 Total Protein 6.4 g/dL 6.0-8.0 Albumin 4.7 g/dL 3.6-4.9 Globulin 1.7 g/dL Low 2.0-3.5 A/G Ratio 2.8 Ratio High 1.0-2.2 Total Bilirubin 0.8 mg/dL 0.1-1.3 Alkaline Phosphatase 57 U/L 24-140 Alt 18 U/L 3-42 Ast 17 U/L 8-42 Anion Gap 8 mmol/L 6-14 Kay Egfr >60 >60 77 Non Kay Egfr >60 >60 78 Comprehensive Metabolic (CMP) 09/27/2011 [facility] Sodium 139 mmol/L 135- 144 79 Potassium 4.7 mmol/L 3.5-5.1 Chloride 102 mmol/L 97-107 Carbon Dioxide 29 mmol/L 23-33 Glucose 110 mg/dL High 70-105 BUN 12 mg/dL 7-25 Creatinine 1.1 mg/dL 0.7-1.3 Calcium 9.3 mg/dL 8.6-10.3 BUN/CR 11 ratio Low 12-20 Total Protein 6.9 g/dL 6.0-8.5 Albumin 4.5 g/dL 3.5-5.7 Globulin 2.4 g/dL 2.0-3.5 A/G Ratio 1.9 Ratio 1.0-2.2 Total Bilirubin 0.7 mg/dL 0.3-1.3 Alkaline Phosphatase 58 U/L 34-104 Alt 23 U/L 7-52 Ast 17 U/L 13-39 Anion Gap 13 mmol/L 8-16 Non Kay Egfr >60 >60 80 Kay Egfr >60 >60 81 CBC With Auto Diff 09/27/2011 [facility] WBC 6.8 K/uL 4.1-11.0 RBC 4.83 M/uL 4.60-6.10 Hemoglobin 14.8 gm/dL 13.5-18.0 Hematocrit 43.3 % 41.0-53.0 MCV 89.6 fL 80.0-97.0 MCH 30.6 pg 27.0-32.0 MCHC 34.2 g/dL 32.0-36.0 RDW 13.6 % 11.5-14.5 PLT Count 159 K/ul 140-400 Neutrophil 60.8 % 35.0-75.0 Lymphocyte 26.9 % 16.0-52.0 Monocyte 9.0 % 2.0-10.0 Eosinophil 2.8 % 0.0-5.0 Basophil 0.5 % 0.0-4.0 Abs Neutrophils 4.1 K/uL 2.1-8.0 Abs Lymphocytes 1.8 K/uL 0.8-5.5 Abs Monocytes 0.6 K/uL 0.1-1.0 Abs Eosinophils 0.2 K/uL 0.0-0.5 Abs Basophils 0.0 K/uL 0.0-0.3 Lipid 09/27/2011 [facility] Cholesterol 140 mg/dL 50-199 Triglycerides 145 mg/dL 10-150 HDL 33 mg/dL 23-92 82 Chol/ HDL Ratio 4.2 ratio 4.0-6.7 VLDL 29 mg/dL 2-29 LDL (Calc) 78 mg/dL 20-129 83 Laboratory test finding 09/27/2011 [facility] PSA 0.53 ng/mL 0.00-4.00 84 Lipid Treatment 03/22/2011 [facility] Cholesterol 133 mg/dL 50-199 85 Triglycerides 129 mg/dL 10-150 HDL 33 mg/dL -71 86 Chol/ HDL Ratio 4.0 ratio 4.0-6.7 VLDL 26 mg/dL 2-29 LDL (Calc) 74 mg/dL 20-129 87 Alt 21 U/L 5-45 Ast 22 U/L 12-40 Laboratory test 09/21/2010 [facility] (Do not Use) PSA 0.47 0.00-4.00 88, 89 finding [facility] ng/ml [place], [place] [id number] [phone] Lipid Panel 09/21/2010 [facility] (Do not Use) Cholesterol 142 mg/dL 50 -199 [facility] [place], [place] [id number] [phone] Triglycerides 178 mg/dL High 10-150 HDL 31 mg/dL -71 90 Chol/HDL Ratio 4.6 Ratio 4.0-6.7 91 VLDL 36 mg/dL High 2-29 LDL (Calc) 75 mg/dL 20-129 92 CBC With Auto Diff 09/21/2010 [facility] (Do not Use) WBC 6.8 K/ul 4.0- 10.9 [facility] [place] [address] [phone] RBC 4.84 M/ul 4.70-6.10 Hemoglobin 15.1 GM/dl 13.5-18.0 Hematocrit 43.2 % 42.0-52.0 MCV 89.2 FL 80.0-97.0 MCH 31.1 pg High 27.0-31.0 MCHC 34.9 g/dL 32.0-36.0 RDW 13.2 % 11.5-14.5 Platelet Count 182 K/ul 140-440 Neutrophils 62.2 % 50-70 Lymphocytes 26.5 % 20-44 Monocytes 8.2 % 2-9 Eosinophil 2.2 % 0-4 Basophil 0.9 % 0-2 Absolute Neutrophils 4.2 K/ul 2.05-7.63 Absolute Lymphocytes 1.8 K/ul 0.8-4.8 Absolute Monocytes 0.6 K/ul 0.1-1.0 Absolute Eosinophils 0.1 K/ul 0.1-0.5 Absolute Basophils 0.1 K/ul 0.0-0.3 Hematology Comment (Comm2) N/A CMP 09/21/2010 [facility] (Do not Use) Sodium 139 mmol/L 135-144 [facility] [place] [address] [phone] Potassium 4.6 mmol/L 3.6-5.2 Chloride 103 mmol/L 97-110 Carbon Dioxide 27 mmol/L 23-32 Glucose 112 mg/dL High 70-105 BUN 12 mg/dL 6-22 Creatinine 1.0 mg/dL 0.5-1.3 BUN/CR 12 Ratio Calcium 9.4 mg/dL 8.6-10.2 Total Protein 6.8 g/dL 5.8-7.8 Albumin 4.3 g/dL 3.5-4.8 Globulin 2.5 g/dL 2.0-3.5 A/G Ratio 1.7 Ratio 1.0-2.2 Total Bilirubin 0.9 mg/dL 0.3-1.2 Alkaline Phosphatase 62 U/L 24-140 Alt 25 U/L 5-45 Ast 19 U/L 12-40 Anion Gap 14 mmol/L 8-16 GFR Calculation > 60 mL/min 60-175 93 GFR For > 60 mL/min 60-175 94 Hemoglobin A1c 03/27/2010 [facility] (Do not Use) Hemoglobin A1c 6.1 % 4.1-6.5 95 With Est Glucos [facility] [place] [address] [phone] Estimated Average Glucose Calc. 128 71-140 Lipid TX Panel 03/27/2010 [facility] (Do not Use) Ast 23 U/L 12-40 [facility] [place] [address] [phone] Alt 25 U/L 5-45 Cholesterol 129 mg/dL 50-199 Triglycerides 85 mg/dL 10-150 HDL 28 mg/dL Low 29-71 96 LDL (Calc) 84 mg/dL 20-129 97 Chol/HDL Ratio 4.6 Ratio 4.0-6.7 98 VLDL 17 mg/dL 2-29 CMP 11/14/2009 [facility] (Do not Use) Sodium 141 mmol/L 135-144 [facility] [place] [address] [phone] Potassium 4.2 mmol/L 3.6-5.2 Chloride 104 mmol/L 97-110 Carbon Dioxide 27 mmol/L 23-32 Glucose 96 mg/dL 70-105 BUN 9 mg/dL 6-22 Creatinine 0.8 mg/dL 0.5-1.3 BUN/CR 11 Ratio Calcium 9.7 mg/dL 8.6-10.2 Total Protein 6.5 g/dL 5.8-7.8 Albumin 4.2 g/dL 3.5-4.8 Globulin 2.3 g/dL 2.0-3.5 A/G Ratio 1.8 Ratio 1.0-2.2 Total Bilirubin 0.8 mg/dL 0.3-1.2 Alkaline Phosphatase 59 U/L 24-140 Alt 24 U/L 5-45 Ast 22 U/L 12-40 Anion Gap 14 mmol/L 8-16 GFR Calculation > 60 mL/min 60-175 99 GFR For > 60 mL/min 60-175 100 CBC With Auto Diff 11/14/2009 [facility] (Do not Use) WBC 7.9 K/ul 4.0- 10.9 [facility] [place] [address] [phone] RBC 4.95 M/ul 4.70-6.10 Hemoglobin 14.8 GM/dl 13.5-18.0 Hematocrit 44.6 % 42.0-52.0 MCV 90.2 FL 80.0-97.0 MCH 30.0 pg 27.0-31.0 MCHC 33.3 g/dL 32.0-36.0 RDW 13.3 % 11.5-14.5 Platelet Count 179 K/ul 140-440 Neutrophils 61.8 % 50-70 Lymphocytes 27.9 % 20-44 Monocytes 7.5 % 2-9 Eosinophil 2.1 % 0-4 Basophil 0.7 % 0-2 Absolute Neutrophils 4.9 K/ul 2.05-7.63 Absolute Lymphocytes 2.2 K/ul 0.8-4.8 Absolute Monocytes 0.6 K/ul 0.1-1.0 Absolute Eosinophils 0.2 K/ul 0.1-0.5 Absolute Basophils 0.1 K/ul 0.0-0.3 Hematology Comment (Comm2) N/A Hemoglobin A1c With 11/14/2009 [facility] (Do not Use) Hemoglobin A1c 6.2 % 4.1-6.5 Est Glucos [facility] [place] [address] [phone] Estimated Average Glucose Calc. 131 71-140 Lipid Panel 11/14/2009 [facility] (Do not Use) Cholesterol 152 mg/dL 50 -199 [place] [address] [phone] Triglycerides 172 mg/dL High 10-150 HDL 37 mg/dL 29-71 101 Chol/HDL Ratio 4.1 Ratio 4.0-6.7 102 VLDL 34 mg/dL High 2-29 LDL (Calc) 81 mg/dL 20-129 103 Laboratory test 11/14/2009 [facility] (Do not Use) PSA 0.63 ng/ml 0.00- 4.00 104 [place] [address] [phone] Urinalysis -RL 08/30/2008 [facility] (Do not Use) Color -LA YELLOW [address] [place] [address] [phone] Appearance -LA TURBID Specific [place] -LA 1.026 1.003-1.030 Leukocyte Esterase -LA NEGATIVE (Neg) Nitrite -LA NEGATIVE (Neg) PH Urine -LA 5.0 5.0-7.5 Protein Urine-LA NEGATIVE (Neg) Glucose Urine -LA NEGATIVE (Neg) Ketone Urine -LA NEGATIVE (Neg) Urobilinogen -LA 0.2 mg/dL 0-1.0 Bilirubin Urine -LA NEGATIVE (Neg) Blood/HGB Urine-RL 1+ Abnormal (Neg) 106 Urine Microscopic, 08/30/2008 [facility] (Do not Use) Urine WBC -LA 0-2 / HPF (0-5) Only -RL [facility] [place] [address] [phone] Urine RBC -LA 0-2 /HPF (0-2) Epithelial Cells -LA 1+ /HPF Abnormal Bacteria -LA 1+ /HPF Abnormal Amorphous 3+ /HPF 107 CMP 08/30/2008 [facility] (Do not Use) Sodium 142 mmol/L 135-144 108 [facility] [place] [address] [phone] Potassium 4.4 mmol/L 3.6-5.2 Chloride 104 mmol/L 97-110 Carbon Dioxide 27 mmol/L 23-33 Glucose 100 mg/dL 70-105 BUN 10 mg/dL 6-22 Creatinine 1.0 mg/dL 0.5-1.3 BUN/CR 10 Ratio Low 12.0-20.0 Calcium 9.7 mg/dL 8.6-10.2 Total Protein 6.5 g/dL 5.8-7.8 Albumin 4.5 g/dL 3.5-4.8 Globulin 2.0 g/dL 2.0-3.5 A/G Ratio 2.3 Ratio High 1.0-2.2 Total Bilirubin 0.7 mg/dL 0.3-1.2 Alkaline Phosphatase 67 U/L 24-140 Alt 27 U/L 4-45 Ast 23 U/L 12-40 Anion Gap 15 mmol/L 8-16 GFR Calculation > 60 mL/min 109 GFR For > 60 mL/min 110 CBC With Auto Diff 08/30/2008 [facility] (Do not Use) WBC 7.6 K/ul 4.0- 10.9 [facility] [place] [address] [phone] RBC 5.06 M/ul 4.70-6.10 Hemoglobin 15.2 GM/dl 13.5-18.0 Hematocrit 44.7 % 42.0-52.0 MCV 88.3 FL 80.0-97.0 MCH 30.0 pg 27.0-31.0 MCHC 33.9 g/dL 32.0-36.0 RDW 13.4 % 11.5-14.5 Platelet Count 187 K/ul 140-440 Neutrophils 62.1 % 50-70 Lymphocytes 27.1 % 20-44 Monocytes 7.6 % 2-9 Eosinophil 2.9 % 0-4 Basophil 0.3 % 0-2 Absolute Neutrophils 4.7 K/ul 2.05-7.63 Absolute Lymphocytes 2.1 K/ul 0.8-4.8 Absolute Monocytes 0.6 K/ul 0.1-1.0 Absolute Eosinophils 0.2 K/ul 0.1-0.5 Absolute Basophils 0.0 K/ul 0.0-0.3 Hematology Comment (Comm2) N/A Lipid Panel 08/30/2008 [facility] (Do not Use) Cholesterol 155 mg/dL 50 -199 [facility] [place] [address] [phone] Triglycerides 172 mg/dL High 10-150 HDL 33 mg/dL 29-71 111 Chol/HDL Ratio 4.7 Ratio 112 VLDL 34 mg/dL LDL (Calc) 88 mg/dL 20-129 113 Laboratory test 08/30/2008 [facility] (Do not Use) PSA 0.50 ng/ml 0.00- 4.00 114 finding [facility] [place] [address] [phone] CRP- High Sensitivity 0.59 mg/L 0.00-3.00 115 CMP 08/25/2007 [facility] (Do not Use) Sodium 141 mmol/L 135-144 116 [facility] [place] [address] [phone] Potassium 4.7 mmol/L 3.6-5.2 Chloride 104 mmol/L 97-110 Carbon Dioxide 30 mmol/L 23-33 Glucose 93 mg/dL 70-105 BUN 8 mg/dL 6-22 Creatinine 0.8 mg/dL 0.5-1.3 BUN/CR 10 Ratio Low 12.0-20.0 Calcium 9.5 mg/dL 8.6-10.2 Total Protein 6.5 g/dL 5.8-7.8 Albumin 4.1 g/dL 3.5-4.8 Globulin 2.4 g/dL 2.0-3.5 A/G Ratio 1.7 Ratio 1.0-2.2 Total Bilirubin 0.9 mg/dL 0.3-1.2 Alkaline Phosphatase 58 U/L 24-140 Alt 23 U/L 4-45 Ast 20 U/L 12-40 Anion Gap 12 mmol/L 8-16 GFR Calculation > 60 mL/min 117 GFR For > 60 mL/min 118 CBC With Auto Diff 08/25/2007 [facility] (Do not Use) WBC 6.3 K/ul 4.0- 10.9 [facility] [place] [address] [phone] RBC 5.17 M/ul 4.70-6.10 Hemoglobin 15.0 GM/dl 13.5-18.0 Hematocrit 45.7 % 42.0-52.0 MCV 88.3 FL 80.0-97.0 MCH 28.9 pg 27.0-31.0 MCHC 32.8 g/dL 32.0-36.0 RDW 12.3 % 11.5-14.5 Platelet Count 197 K/ul 140-440 Neutrophils 60.1 % 50-70 Lymphocytes 27.3 % 20-44 Monocytes 9.2 % High 2-9 Eosinophil 3.0 % 0-4 Basophil 0.4 % 0-2 Absolute Neutrophils 3.8 K/ul 2.05-7.63 Absolute Lymphocytes 1.7 K/ul 0.8-4.8 Absolute Monocytes 0.6 K/ul 0.1-1.0 Absolute Eosinophils 0.2 K/ul 0.1-0.5 Absolute Basophils 0.0 K/ul Low 0.1-0.3 Lipid Panel 08/25/2007 [facility] (Do not Use) Cholesterol 146 mg/dL 50 -199 [facility] [place] [address] [phone] Triglycerides 131 mg/dL 10-150 HDL 34 mg/dL Abnormal (>40) Chol/HDL Ratio 4.3 Ratio VLDL 26 mg/dL LDL (Calc) 86 mg/dL 20-129 Laboratory test 08/25/2007 [facility] (Do not Use) TSH 0.85 uIU/ml 0.34 -5.60 finding [facility] [place] [address] [phone] PSA Free & Total 08/25/2007 [facility] (Do not Use) PSA, 0.7 NG/ML 0.0- 4.0 -LA [facility] [place] [address] [phone] PSA, Free 0.2 NG/ML PSA, % Free - [place] 29 % 119 Lipid TX Panel 05/12/2007 [facility] (Do not Use) Ast 21 U/L 12-40 [facility] [place] [address] [phone] Alt 28 U/L 4-45 Cholesterol 160 mg/dL 50-199 Triglycerides 153 mg/dL High 10-150 HDL 33 mg/dL 29-71 LDL (Calc) 96 mg/dL 20-129 Chol/HDL Ratio 4.9 Ratio VLDL 31 mg/dL Lipid TX Panel 01/31/2007 [facility] (Do not Use) Ast 20 U/L 12-40 [facility] [place] [address] [phone] Alt 22 U/L 4-45 Cholesterol 137 mg/dL 50-199 Triglycerides 83 mg/dL 10-150 HDL 30 mg/dL -71 LDL (Calc) 90 mg/dL 20-129 Chol/HDL Ratio 4.6 Ratio VLDL 17 mg/dL CMP 08/26/2006 [facility] (Do not Use) Sodium 141 mmol/L 135-144 [facility] [place] [address] [phone] Potassium 4.2 mmol/L 3.6-5.2 Chloride 103 mmol/L 97-110 Carbon Dioxide 31 mmol/L 23-33 Glucose 87 mg/dL 70-105 BUN 12 mg/dL 6-22 Creatinine 1.0 mg/dL 0.5-1.3 BUN/CR 12 Ratio 12.0-20.0 Calcium 9.8 mg/dL 8.6-10.2 Total Protein 6.9 g/dL 5.8-7.8 Albumin 4.4 g/dL 3.5-4.8 Globulin 2.5 g/dL 2.0-3.5 A/G Ratio 1.8 Ratio 1.0-2.2 Total Bilirubin 0.8 mg/dL 0.3-1.2 Alkaline Phosphatase 71 U/L 24-140 Alt 29 U/L 4-45 Ast 24 U/L 12-40 Anion Gap 11 mmol/L 8-16 GFR White Male 83 GFR White Female 61 GFR Black Male 100 GFR Black Female 74 GFR Guidelines 0 120 CBC With Auto Diff 08/26/2006 [facility] (Do not Use) WBC 8.3 K/ul 4.0- 10.9 [facility] [place] [address] [phone] RBC 5.00 M/ul 4.70-6.10 Hemoglobin 15.5 GM/dl 13.5-18.0 Hematocrit 43.6 % 42.0-52.0 MCV 87.2 FL 80.0-97.0 MCH 31.0 pg 27.0-31.0 MCHC 35.6 g/dL 32.0-36.0 RDW 12.6 % 11.5-14.5 Platelet Count 196 K/ul 140-440 Neutrophils 58.7 % 50-70 Lymphocytes 29.4 % 20-44 Monocytes 9.2 % High 2-9 Eosinophil 1.8 % 0-4 Basophil 0.9 % 0-2 Absolute Neutrophils 4.9 K/ul 2.05-7.63 Absolute Lymphocytes 2.4 K/ul 0.8-4.8 Absolute Monocytes 0.8 K/ul 0.1-1.0 Absolute Eosinophils 0.1 K/ul 0.1-0.5 Absolute Basophils 0.1 K/ul 0.1-0.3 Lipid Panel 08/26/2006 [facility] (Do not Use) Cholesterol 251 mg/dL High 50-199 [facility] [place] [address] [phone] Triglycerides 188 mg/dL High 10-150 HDL 42 mg/dL 29-71 Chol/HDL Ratio 6.0 Ratio VLDL 38 mg/dL LDL (Calc) 171 mg/dL High 20-129 Laboratory test 08/26/2006 [facility] (Do not Use) PSA 0.65 ng/ml 0.00- 4.00 121 finding [facility] [place] [address] [phone] CBC 08/23/2005 [facility] (Do not Use) WBC 6.0 K/ul 4.1-10.9 [facility] [place] [address] [phone] RBC 5.04 M/ul 4.20-6.30 Hemoglobin 15.2 GM/dl 12.0-16.0 Hematocrit 44.0 % 41.0-53.0 MCV 87.1 FL 80.0-97.0 MCH 30.2 pg 26.0-32.0 MCHC 34.6 g/dL 31.0-36.0 RDW 13.1 % 11.5-14.5 Platelet Count 185 K/ul 140-440 Neutrophils 53.2 % 50-70 Lymphocytes 33.0 % 20-44 Monocytes 11.1 % High 2-9 Eosinophil 2.0 % 0-4 Basophil 0.7 % 0-2 Absolute Neutrophils 3.2 K/ul 2.05-7.63 Absolute Lymphocytes 2.0 K/ul 0.8-4.8 Absolute Monocytes 0.7 K/ul 0.1-1.0 Absolute Eosinophils 0.1 K/ul 0.1-0.5 Absolute Basophils 0.0 K/ul Low 0.1-0.3 Lipid Panel 08/23/2005 [facility] (Do not Use) Cholesterol 234 mg/dL High 50-199 [facility] [place] [address] [phone] Triglycerides 159 mg/dL High 10-150 HDL 42 mg/dL 29-71 Chol/HDL Ratio 5.6 Ratio VLDL 32 mg/dL LDL (Calc) 160 mg/dL High 20-100 CMP 08/23/2005 [facility] (Do not Use) Sodium 140 mmol/L 135-144 [facility] [place] [address] [phone] Potassium 4.5 mmol/L 3.6-5.2 Chloride 102 mmol/L 97-110 Carbon Dioxide 31 mmol/L 22-32 Glucose 88 mg/dL 70-105 BUN 13 mg/dL 6-22 Creatinine 1.0 mg/dL 0.5-1.3 BUN/CR 13 Ratio 12.0-20.0 Calcium 9.6 mg/dL 8.6-10.2 122 Total Protein 6.8 g/dL 5.8-7.8 Albumin 4.5 g/dL 3.5-4.8 Globulin 2.3 g/dL 2.0-3.5 A/G Ratio 2.0 Ratio 1.0-2.2 Total Bilirubin 0.8 mg/dL 0.3-1.2 Ast 28 U/L 12-40 Alt 37 U/L 4-45 Alkaline Phosphatase 68 U/L 24-108 Anion Gap 12 mmol/L 8-16 GFR White Male 83 GFR White Female 62 GFR Black Male 101 GFR Black Female 75 GFR Guidelines 0 123 Laboratory test 08/23/2005 [facility] (Do not Use) PSA 1.07 ng/ml 0.00- 4.00 124 finding [facility] [place] [address] [phone] CMP 04/08/2004 [facility] (Do not Use) Sodium 141 mmol/L 135-145 [facility] [place] [address] [phone] Potassium 3.9 mmol/L 3.4-5.3 Chloride 106 mmol/L 98-111 Carbon Dioxide 26 mmol/L 22-33 Glucose 102 mg/dL 70-105 BUN 10 mg/dL 6-26 Creatinine 1.1 mg/dL 0.5-1.5 BUN/CR 9 Ratio Low 12.0-20.0 Calcium 9.2 mg/dL 8.6-10.3 Total Protein 6.8 g/dL 6.2-8.3 Albumin 4.2 g/dL 3.5-5.0 Globulin 2.6 g/dL Low 2.7-4.3 A/G Ratio 1.6 Ratio 1.0-2.2 Total Bilirubin 0.8 mg/dL 0.1-1.3 Ast 32 U/L 8-42 Alt 27 U/L 3-42 Alkaline Phosphatase 61 U/L 24-108 Anion Gap 13 mmol/L 10-20 Lipid Panel 04/08/2004 [facility] (Do not Use) Cholesterol 206 mg/dL High 50-199 [facility] [place] [address] [phone] Triglycerides 209 mg/dL High 30-200 HDL 35 mg/dL 29-71 Chol/HDL Ratio 5.9 Ratio VLDL 42 mg/dL LDL (Calc) 129 mg/dL 20-129 Laboratory test 04/08/2004 [facility] (Do not Use) PSA 0.60 ng/ml 0.00- 4.00 125 finding [facility] [place] [address] [phone] CBC 04/08/2004 [facility] (Do not Use) WBC 8.7 K/ul 4.1-10.9 [facility] [place] [address] [phone] RBC 4.88 M/ul 4.20-6.30 Hemoglobin 14.0 GM/dl 12.0-16.0 Hematocrit 43.3 % 37.0-51.0 MCV 88.8 FL 80.0-97.0 MCH 28.7 pg 26.0-32.0 MCHC 32.3 g/dL 31.0-36.0 RDW 12.7 % 11.5-14.5 Platelet Count 174 K/ul 140-440 Neutrophils 65.9 % 50-70 Lymphocytes 22.8 % 20-44 Monocytes 8.5 % 2-9 Eosinophil 2.1 % 0-4 Basophil 0.7 % 0-2 Absolute Neutrophils 5.7 K/ul 2.05-7.63 Absolute Lymphocytes 2.0 K/ul 0.8-4.8 Absolute Monocytes 0.7 K/ul 0.1-1.0 Absolute Eosinophils 0.2 K/ul 0.1-0.5 Absolute Basophils 0.1 K/ul 0.1-0.3 Laboratory test 03/29/2003 [facility] (Do not Use) PSA 0.64 ng/ml 0.00- 4.00 126 finding [facility] [place] [address] [phone] CMP 03/29/2003 [facility] (Do not Use) Sodium 141 mmol/L 135-145 [facility] [place] [address] [phone] Potassium 3.9 mmol/L 3.4-5.3 Chloride 105 mmol/L 98-111 Carbon Dioxide 28 mmol/L 22-33 Glucose 87 mg/dL 70-105 BUN 11 mg/dL 6-26 Creatinine 1.0 mg/dL 0.5-1.5 BUN/CR 11 Ratio Low 12.0-20.0 Calcium 9.3 mg/dL 8.6-10.3 Total Protein 6.6 g/dL 6.2-8.3 Albumin 4.3 g/dL 3.5-5.0 Globulin 2.3 g/dL Low 2.7-4.3 A/G Ratio 1.9 Ratio 1.0-2.2 Total Bilirubin 1.1 mg/dL 0.1-1.3 Ast 20 U/L 8-42 Alt 20 U/L 3-42 Alkaline Phosphatase 61 U/L 24-108 Anion Gap 12 mmol/L 10-20 Lipid Panel 03/29/2003 [facility] (Do not Use) Cholesterol 237 mg/dL High 50-199 [facility] [place] [address] [phone] Triglycerides 163 mg/dL 30-200 HDL 34 mg/dL 29-71 Chol/HDL Ratio 7.0 Ratio VLDL 33 mg/dL LDL (Calc) 170 mg/dL High 20-129 CBC 02/19/2002 [facility] (Do not Use) WBC 10.4 K/ul 4.1-10.9 [facility] [place] [address] [phone] RBC 4.87 M/ul 4.2-6.3 Hemoglobin 14.1 GM/dl 12.0-16.0 Hematocrit 42.1 % 37.0-51.0 MCV 86.5 FL 80-97 MCH 29.0 pg 26.0-32.0 MCHC 33.5 g/dL 31.0-36.0 RDW 13.0 % 11.5-14.5 Platelet Count 181 K/ul 140-440 Laboratory test 02/19/2002 [facility] (Do not Use) PSA 0.52 ng/ml 0.00- 4.00 127 finding [facility] [place] [address] [phone] CMP 02/19/2002 [facility] (Do not Use) Sodium 144 mmol/L 137-145 [facility] [place] [address] [phone] Potassium 4.0 mmol/L 3.6-5.0 Chloride 106 mmol/L 98-107 Carbon Dioxide 25 mmol/L 22-30 Glucose 101 mg/dL 75-110 BUN 11 mg/dL 9-21 Creatinine, Serum 1.0 mg/dL 0.8-1.5 BUN/CR Ratio 11.7 Ratio Low 12-20 Calcium 8.8 mg/dL 8.7-10.5 Total Protein 6.6 g/dL 6.3-8.2 Albumin 3.9 g/dL 3.5-5.0 Globulin 2.7 g/dL 2.7-4.3 A/G Ratio 1.4 1.0-2.2 Total Bilirubin 0.7 mg/dL 0.2-1.3 Ast 19 U/L 17-59 Alt 27 U/L 21-72 Alkaline Phosphatase 80 U/L 38-126 Lipid Panel 02/19/2002 [facility] (Do not Use) Cholesterol 191 mg/dL 50 -199 [facility] [place] [address] [phone] Triglycerides 157 mg/dL 30-249 HDL Cholesterol 33 mg/dL 29-67 LDL(Calc) 127 mg/dL 20-129 Chol/HDL Ratio 5.81 128 VLDL Cholesterol 31 mg/dL Diff For Manual CBC 02/19/2002 [facility] (Do not Use) RBC Morphology NORMAL [facility] [place] [address] [phone] Band 10.0 % High 2-6 Neutrophil 71.0 % High 50-70 Lymphocyte 12.0 % Low 20-44 Monocyte 7.0 % 2-9 Platelet Estimate NORMAL 1 Per NCEP ATP III Guidelines: Results lower than 40 mg/dL are suggestive of increased risk for coronary artery disease. Results > or=to 60 mg/dL are considered a negative risk factor. 2 Per NCEP ATP III Guidelines: Normal Population <130 Patients with medical conditions: CHD/DM Optimal: <100 Borderline high: 130-159 High: 160-189 Very high: >189 3 Updated reference range on new analyzer 4 Updated reference range on new analyzer 5 Concerning GFR Guidelines for Americans: Normal function or mild renal disease, if clinically at risk: >/=60 mL/min Moderately decreased: 30-59 Severely decreased: 15-29 Renal failure: <15 6 Concerning GFR Guidelines: Normal function or mild renal disease, if clinically at risk: >/=60 mL/min Moderately decreased: 30-59 Severely decreased: 15-29 Renal failure: <15 Glomerular Filtration Rate (GFR) is estimated based on the MDRD equation, which assumes a steady state for creatinine as recommended by the National Kidney Disease Education Program in conjunction with the National Institutes of Health and the National Kidney Foundation. Clinical conditions in which it may be necessary to measure GFR by using clearance methods include extremes of age and body size, severe malnutrition or obesity, diseases of skeletal muscle, paraplegia or quadriplegia, vegetarian diet, rapidly changing kidney function, and calculation of the dose of potentially toxic drugs that are excreted by the kidneys. 7 Updated Reference Range 8 S/CO Ratio >/=1.0 is REACTIVE. S/CO <5.0 is Low Reactive. S/CO >/= 5.0 is High Reactive. Effective May 06, 2017 all anti-HCV reactive samples are sent for quantitative PCR confirmation. 9 Per NCEP ATP III Guidelines: Results lower than 40 mg/dL are suggestive of increased risk for coronary artery disease. Results > or=to 60 mg/dL are considered a negative risk factor. 10 Per NCEP ATP III Guidelines: Normal Population <130 Patients with medical conditions: CHD/DM Optimal: <100 Borderline high: 130-159 High: 160-189 Very high: >189 11 Updated reference range on new analyzer 12 Updated reference range on new analyzer 13 Concerning GFR Guidelines for Americans: Normal function or mild renal disease, if clinically at risk: >/=60 mL/min Moderately decreased: 30-59 Severely decreased: 15-29 Renal failure: <15 14 Concerning GFR Guidelines: Normal function or mild renal disease, if clinically at risk: >/=60 mL/min Moderately decreased: 30-59 Severely decreased: 15-29 Renal failure: <15 Glomerular Filtration Rate (GFR) is estimated based on the MDRD equation, which assumes a steady state for creatinine as recommended by the National Kidney Disease Education Program in conjunction with the National Institutes of Health and the National Kidney Foundation. Clinical conditions in which it may be necessary to measure GFR by using clearance methods include extremes of age and body size, severe malnutrition or obesity, diseases of skeletal muscle, paraplegia or quadriplegia, vegetarian diet, rapidly changing kidney function, and calculation of the dose of potentially toxic drugs that are excreted by the kidneys. 15 Updated reference range on new analyzer 16 This sample is drawn by:DAVID. 17 Beginning 11/07/06 PSA values assayed at [facility] uses chemiluminescence methodology manufactured by [employer] for use on the DXI analyzer. Values obtained with different assay methods or kits can not be used interchangeably. Serum PSA measurement is not an absolute test for malignancy. The PSA value should be used in conjunction with information available from clinical evaluation and other diagnostic procedures. 18 Updated reference range on new analyzer 19 Updated reference range on new analyzer 20 Concerning GFR Guidelines for Americans: Normal function or mild renal disease, if clinically at risk: >/=60 mL/min Moderately decreased: 30-59 Severely decreased: 15-29 Renal failure: <15 21 Concerning GFR Guidelines: Normal function or mild renal disease, if clinically at risk: >/=60 mL/min Moderately decreased: 30-59 Severely decreased: 15-29 Renal failure: <15 Glomerular Filtration Rate (GFR) is estimated based on the MDRD equation, which assumes a steady state for creatinine as recommended by the National Kidney Disease Education Program in conjunction with the National Institutes of Health and the National Kidney Foundation. Clinical conditions in which it may be necessary to measure GFR by using clearance methods include extremes of age and body size, severe malnutrition or obesity, diseases of skeletal muscle, paraplegia or quadriplegia, vegetarian diet, rapidly changing kidney function, and calculation of the dose of potentially toxic drugs that are excreted by the kidneys. 22 Updated reference range on new 23 Per NCEP ATP III Guidelines: Results lower than 40 mg/dL are suggestive of increased risk for coronary artery disease. Results > or=to 60 mg/dL are considered a negative risk factor. 24 Per NCEP ATP III Guidelines: Normal Population <130 Patients with medical conditions: CHD/DM Optimal: <100 Borderline high: 130-159 High: 160-189 Very high: >189 25 Per NCEP ATP III Guidelines: Results lower than 40 mg/dL are suggestive of increased risk for coronary artery disease. Results > or=to 60 mg/dL are considered a negative risk factor. 26 Per NCEP ATP III Guidelines: Normal Population <130 Patients with medical conditions: CHD/DM Optimal: <100 Borderline high: 130-159 High: 160-189 Very high: >189 27 Concerning GFR Guidelines for Americans: Normal function or mild renal disease, if clinically at risk: >/=60 mL/min Moderately decreased: 30-59 Severely decreased: 15-29 Renal failure: <15 28 Concerning GFR Guidelines: Normal function or mild renal disease, if clinically at risk: >/=60 mL/min Moderately decreased: 30-59 Severely decreased: 15-29 Renal failure: <15 Glomerular Filtration Rate (GFR) is estimated based on the MDRD equation, which assumes a steady state for creatinine as recommended by the National Kidney Disease Education Program in conjunction with the National Institutes of Health and the National Kidney Foundation. Clinical conditions in which it may be necessary to measure GFR by using clearance methods include extremes of age and body size, severe malnutrition or obesity, diseases of skeletal muscle, paraplegia or quadriplegia, vegetarian diet, rapidly changing kidney function, and calculation of the dose of potentially toxic drugs that are excreted by the kidneys. 29 Concerning GFR Guidelines for Americans: Normal function or mild renal disease, if clinically at risk: >/=60 mL/min Moderately decreased: 30-59 Severely decreased: 15-29 Renal failure: <15 30 Concerning GFR Guidelines: Normal function or mild renal disease, if clinically at risk: >/=60 mL/min Moderately decreased: 30-59 Severely decreased: 15-29 Renal failure: <15 Glomerular Filtration Rate (GFR) is estimated based on the MDRD equation, which assumes a steady state for creatinine as recommended by the National Kidney Disease Education Program in conjunction with the National Institutes of Health and the National Kidney Foundation. Clinical conditions in which it may be necessary to measure GFR by using clearance methods include extremes of age and body size, severe malnutrition or obesity, diseases of skeletal muscle, paraplegia or quadriplegia, vegetarian diet, rapidly changing kidney function, and calculation of the dose of potentially toxic drugs that are excreted by the kidneys. 31 Per NCEP ATP III Guidelines: Results lower than 40 mg/dL are suggestive of increased risk for coronary artery disease. Results > or=to 60 mg/dL are considered a negative risk factor. 32 Per NCEP ATP III Guidelines: Normal Population <130 Patients with medical conditions: CHD/DM Optimal: <100 Borderline high: 130-159 High: 160-189 Very high: >189 33 Beginning 11/07/06 PSA values assayed at [facility] uses chemiluminescence methodology manufactured by [employer] for use on the DXI analyzer. Values obtained with different assay methods or kits can not be used interchangeably. Serum PSA measurement is not an absolute test for malignancy. The PSA value should be used in conjunction with information available from clinical evaluation and other diagnostic procedures. 34 Unless otherwise specified, testing performed by [facility] [address] [place] [id number] 35 Concerning GFR Guidelines for Americans: Normal function or mild renal disease, if clinically at risk: >/=60 mL/min Moderately decreased: 30-59 Severely decreased: 15-29 Renal failure: <15 36 Concerning GFR Guidelines: Normal function or mild renal disease, if clinically at risk: >/=60 mL/min Moderately decreased: 30-59 Severely decreased: 15-29 Renal failure: <15 Glomerular Filtration Rate (GFR) is estimated based on the MDRD equation, which assumes a steady state for creatinine as recommended by the National Kidney Disease Education Program in conjunction with the National Institutes of Health and the National Kidney Foundation. Clinical conditions in which it may be necessary to measure GFR by using clearance methods include extremes of age and body size, severe malnutrition or obesity, diseases of skeletal muscle, paraplegia or quadriplegia, vegetarian diet, rapidly changing kidney function, and calculation of the dose of potentially toxic drugs that are excreted by the kidneys. 37 Per NCEP ATP III Guidelines: Results lower than 40 mg/dL are suggestive of increased risk for coronary artery disease. Results > or=to 60 mg/dL are considered a negative risk factor. 38 Per NCEP ATP III Guidelines: Normal Population <130 Patients with medical conditions: CHD/DM Optimal: <100 Borderline high: 130-159 High: 160-189 Very high: >189 39 This sample is drawn by:RH 40 Per NCEP ATP III Guidelines: Results lower than 40 mg/dL are suggestive of increased risk for coronary artery disease. Results > or=to 60 mg/dL are considered a negative risk factor. 41 Per NCEP ATP III Guidelines: Normal Population <130 Patients with medical conditions: CHD/DM Optimal: <100 Borderline high: 130-159 High: 160-189 Very high: >189 42 Concerning GFR Guidelines for Americans: Normal function or mild renal disease, if clinically at risk: >/=60 mL/min Moderately decreased: 30-59 Severely decreased: 15-29 Renal failure: <15 43 Concerning GFR Guidelines: Normal function or mild renal disease, if clinically at risk: >/=60 mL/min Moderately decreased: 30-59 Severely decreased: 15-29 Renal failure: <15 Glomerular Filtration Rate (GFR) is estimated based on the MDRD equation, which assumes a steady state for creatinine as recommended by the National Kidney Disease Education Program in conjunction with the National Institutes of Health and the National Kidney Foundation. Clinical conditions in which it may be necessary to measure GFR by using clearance methods include extremes of age and body size, severe malnutrition or obesity, diseases of skeletal muscle, paraplegia or quadriplegia, vegetarian diet, rapidly changing kidney function, and calculation of the dose of potentially toxic drugs that are excreted by the kidneys. 44 This sample is drawn by:DAVID 45 Concerning GFR Guidelines for Americans: Normal function or mild renal disease, if clinically at risk: >/=60 mL/min Moderately decreased: 30-59 Severely decreased: 15-29 Renal failure: <15 46 Concerning GFR Guidelines: Normal function or mild renal disease, if clinically at risk: >/=60 mL/min Moderately decreased: 30-59 Severely decreased: 15-29 Renal failure: <15 Glomerular Filtration Rate (GFR) is estimated based on the MDRD equation, which assumes a steady state for creatinine as recommended by the National Kidney Disease Education Program in conjunction with the National Institutes of Health and the National Kidney Foundation. Clinical conditions in which it may be necessary to measure GFR by using clearance methods include extremes of age and body size, severe malnutrition or obesity, diseases of skeletal muscle, paraplegia or quadriplegia, vegetarian diet, rapidly changing kidney function, and calculation of the dose of potentially toxic drugs that are excreted by the kidneys. 47 Per NCEP ATP III Guidelines: Results lower than 40 mg/dL are suggestive of increased risk for coronary artery disease. Results > or=to 60 mg/dL are considered a negative risk factor. 48 Per NCEP ATP III Guidelines: Normal Population <130 Patients with medical conditions: CHD/DM Optimal: <100 Borderline high: 130-159 High: 160-189 Very high: >189 49 This sample is drawn by:CT 50 Per NCEP ATP III Guidelines: Results lower than 40 mg/dL are suggestive of increased risk for coronary artery disease. Results > or=to 60 mg/dL are considered a negative risk factor. 51 Per NCEP ATP III Guidelines: Normal Population <130 Patients with medical conditions: CHD/DM Optimal: <100 Borderline high: 130-159 High: 160-189 Very high: >189 52 Concerning GFR Guidelines for Americans: Normal function or mild renal disease, if clinically at risk: >/=60 mL/min Moderately decreased: 30-59 Severely decreased: 15-29 Renal failure: <15 53 Concerning GFR Guidelines: Normal function or mild renal disease, if clinically at risk: >/=60 mL/min Moderately decreased: 30-59 Severely decreased: 15-29 Renal failure: <15 Glomerular Filtration Rate (GFR) is estimated based on the MDRD equation, which assumes a steady state for creatinine as recommended by the National Kidney Disease Education Program in conjunction with the National Institutes of Health and the National Kidney Foundation. Clinical conditions in which it may be necessary to measure GFR by using clearance methods include extremes of age and body size, severe malnutrition or obesity, diseases of skeletal muscle, paraplegia or quadriplegia, vegetarian diet, rapidly changing kidney function, and calculation of the dose of potentially toxic drugs that are excreted by the kidneys. 54 Concerning GFR Guidelines for Americans: Normal function or mild renal disease, if clinically at risk: >/=60 mL/min Moderately decreased: 30-59 Severely decreased: 15-29 Renal failure: <15 55 Concerning GFR Guidelines: Normal function or mild renal disease, if clinically at risk: >/=60 mL/min Moderately decreased: 30-59 Severely decreased: 15-29 Renal failure: <15 Glomerular Filtration Rate (GFR) is estimated based on the MDRD equation, which assumes a steady state for creatinine as recommended by the National Kidney Disease Education Program in conjunction with the National Institutes of Health and the National Kidney Foundation. Clinical conditions in which it may be necessary to measure GFR by using clearance methods include extremes of age and body size, severe malnutrition or obesity, diseases of skeletal muscle, paraplegia or quadriplegia, vegetarian diet, rapidly changing kidney function, and calculation of the dose of potentially toxic drugs that are excreted by the kidneys. 56 Per NCEP ATP III Guidelines: Results lower than 40 mg/dL are suggestive of increased risk for coronary artery disease. Results > or=to 60 mg/dL are considered a negative risk factor. 57 Per NCEP ATP III Guidelines: Normal Population <130 Patients with medical conditions: CHD/DM Optimal: <100 Borderline high: 130-159 High: 160-189 Very high: >189 58 NEW CHEMILUMINESCENT IMMUNOASSAY METHOD IN USE 08/01/12 PROVIDES ENHANCED SPECIFICITY THROUGH USE OF RECOMBINANT VLsE ANTIGEN. A Negative serologic test for Lyme Disease indicates no serologic evidence of infection with B burgdorferi at the time this specimen was collected. A repeat specimen should be collected in 2 to 4 weeks if clinically indicated. Unless otherwise specified, testing performed by [facility] [place] [address] 59 Unless otherwise specified, testing performed by [facility] [place] [address] 60 NO MONOCLONAL IDENTIFIED 61 ALIYA Pardo 10/26/13 Unless otherwise specified, testing performed by [facility] [place] [address] 62 Concerning GFR Guidelines for Americans: Normal function or mild renal disease, if clinically at risk: >/=60 mL/min Moderately decreased: 30-59 Severely decreased: 15-29 Renal failure: <15 63 Concerning GFR Guidelines: Normal function or mild renal disease, if clinically at risk: >/=60 mL/min Moderately decreased: 30-59 Severely decreased: 15-29 Renal failure: <15 Glomerular Filtration Rate (GFR) is estimated based on the MDRD equation, which assumes a steady state for creatinine as recommended by the National Kidney Disease Education Program in conjunction with the National Institutes of Health and the National Kidney Foundation. Clinical conditions in which it may be necessary to measure GFR by using clearance methods include extremes of age and body size, severe malnutrition or obesity, diseases of skeletal muscle, paraplegia or quadriplegia, vegetarian diet, rapidly changing kidney function, and calculation of the dose of potentially toxic drugs that are excreted by the kidneys. 64 Per NCEP ATP III Guidelines: Results lower than 40 mg/dL are suggestive of increased risk for coronary artery disease. Results > or=to 60 mg/dL are considered a negative risk factor. 65 Per NCEP ATP III Guidelines: Normal Population <130 Patients with medical conditions: CHD/DM Optimal: <100 Borderline high: 130-159 High: 160-189 Very high: >189 66 Beginning 11/07/06 PSA values assayed at [facility] uses an EIA methodology manufactured by [employer] for use on the DXI analyzer. Values obtained with different assay methods or kits can not be used interchangeably. Serum PSA measurement is not an absolute test for malignancy. The PSA value should be used in conjunction with information available from clinical evaluation and other diagnostic procedures. 67 Per NCEP ATP III Guidelines: Results lower than 40 mg/dL are suggestive of increased risk for coronary artery disease. Results > or=to 60 mg/dL are considered a negative risk factor. 68 Per NCEP ATP III Guidelines: Normal Population <130 Patients with medical conditions: CHD/DM Optimal: <100 Borderline high: 130-159 High: 160-189 Very high: >189 69 Concerning GFR Guidelines for Americans: Normal function or mild renal disease, if clinically at risk: >/=60 mL/min Moderately decreased: 30-59 Severely decreased: 15-29 Renal failure: <15 70 Concerning GFR Guidelines: Normal function or mild renal disease, if clinically at risk: >/=60 mL/min Moderately decreased: 30-59 Severely decreased: 15-29 Renal failure: <15 Glomerular Filtration Rate (GFR) is estimated based on the MDRD equation, which assumes a steady state for creatinine as recommended by the National Kidney Disease Education Program in conjunction with the National Institutes of Health and the National Kidney Foundation. Clinical conditions in which it may be necessary to measure GFR by using clearance methods include extremes of age and body size, severe malnutrition or obesity, diseases of skeletal muscle, paraplegia or quadriplegia, vegetarian diet, rapidly changing kidney function, and calculation of the dose of potentially toxic drugs that are excreted by the kidneys. 71 Per NCEP ATP III Guidelines: Results lower than 40 mg/dL are suggestive of increased risk for coronary artery disease. Results > or=to 60 mg/dL are considered a negative risk factor. 72 Per NCEP ATP III Guidelines: Optimal: <100 Near optimal: 100-129 Borderline high: 130-159 High: 160-189 Very high: >189 73 Desirable: <130 Borderline High: 130-159 High: 160-189 Very high: 190 or greater 74 Beginning 11/07/06 PSA values assayed at [facility] uses an EIA methodology manufactured by [employer] for use on the DXI analyzer. Values obtained with different assay methods or kits can not be used interchangeably. Serum PSA measurement is not an absolute test for malignancy. The PSA value should be used in conjunction with information available from clinical evaluation and other diagnostic procedures. 75 Per NCEP ATP III Guidelines: Results lower than 40 mg/dL are suggestive of increased risk for coronary artery disease. Results > or=to 60 mg/dL are considered a negative risk factor. 76 Per NCEP ATP III Guidelines: Optimal: <100 Near optimal: 100-129 Borderline high: 130-159 High: 160-189 Very high: >189 77 Concerning GFR Guidelines for Americans: Normal function or mild renal disease, if clinically at risk: >/=60 mL/min Moderately decreased: 30-59 Severely decreased: 15-29 Renal failure: <15 78 Concerning GFR Guidelines: Normal function or mild renal disease, if clinically at risk: >/=60 mL/min Moderately decreased: 30-59 Severely decreased: 15-29 Renal failure: <15 Glomerular Filtration Rate (GFR) is estimated based on the MDRD equation, which assumes a steady state for creatinine as recommended by the National Kidney Disease Education Program in conjunction with the National Institutes of Health and the National Kidney Foundation. Clinical conditions in which it may be necessary to measure GFR by using clearance methods include extremes of age and body size, severe malnutrition or obesity, diseases of skeletal muscle, paraplegia or quadriplegia, vegetarian diet, rapidly changing kidney function, and calculation of the dose of potentially toxic drugs that are excreted by the kidneys. 79 This sample is drawn by:DAVID. 80 Concerning GFR Guidelines: Normal function or mild renal disease, if clinically at risk: >/=60 mL/min Moderately decreased: 30-59 Severely decreased: 15-29 Renal failure: <15 Glomerular Filtration Rate (GFR) is estimated based on the MDRD equation, which assumes a steady state for creatinine as recommended by the National Kidney Disease Education Program in conjunction with the National Institutes of Health and the National Kidney Foundation. Clinical conditions in which it may be necessary to measure GFR by using clearance methods include extremes of age and body size, severe malnutrition or obesity, diseases of skeletal muscle, paraplegia or quadriplegia, vegetarian diet, rapidly changing kidney function, and calculation of the dose of potentially toxic drugs that are excreted by the kidneys. 81 Concerning GFR Guidelines for Americans: Normal function or mild renal disease, if clinically at risk: >/=60 mL/min Moderately decreased: 30-59 Severely decreased: 15-29 Renal failure: <15 82 Per NCEP ATP III Guidelines: Results lower than 40 mg/dL are suggestive of increased risk for coronary artery disease. Results > or=to 60 mg/dL are considered a negative risk factor. 83 Per NCEP ATP III Guidelines: Optimal: <100 Near optimal: 100-129 Borderline high: 130-159 High: 160-189 Very high: >189 84 Beginning 11/07/06 PSA values assayed at [facility] uses an EIA methodology manufactured by [employer] for use on the DXI analyzer. Values obtained with different assay methods or kits can not be used interchangeably. Serum PSA measurement is not an absolute test for malignancy. The PSA value should be used in conjunction with information available from clinical evaluation and other diagnostic procedures. 85 This sample is drawn by:MM 86 Per NCEP ATP III Guidelines: Results lower than 40 mg/dL are suggestive of increased risk for coronary artery disease. Results > or=to 60 mg/dL are considered a negative risk factor. 87 Per NCEP ATP III Guidelines: Optimal: <100 Near optimal: 100-129 Borderline high: 130-159 High: 160-189 Very high: >189 88 This sample is drawn by:CT 89 BEGINNING 11/07/06, PSA VALUES ASSAYED AT [facility] USES AN EIA METHODOLOGY MANUFACTURED BY [employer] FOR USE ON THE DXI ANALYZER. VALUES OBTAINED WITH DIFFERENT ASSAY METHODS OR KITS CAN NOT BE USED INTERCHANGEABLY. SERUM PSA MEASUREMENT IS NOT AN ABSOLUTE TEST FOR MALIGNANCY, THE PSA VALUE SHOULD BE USED IN CONJUNCTION WITH INFORMATION AVAILABLE FROM CLINICAL EVALUATION AND OTHER DIAGNOSTIC PROCEDURES. 90 PER NCEP ATP III GUIDELINES: RESULTS LOWER THAN 40 MG/DL ARE SUGGESTIVE OF INCREASED RISK FOR CORONARY ARTERY DISEASE. RESULTS > OR=TO 60 MG/DL ARE CONSIDERED A NEGATIVE RISK FACTOR. 91 INTERPRETATION OF CHOL-HDL RATIO CHD RISK FEMALE MALE VERY HIGH >8.3 >14.3 HIGH 5.6 - 8.3 6.7 - 14.3 AVERAGE 3.7 - 5.6 4.0 - 6.7 BELOW AVERAGE 2.5 - 3.7 2.7 - 4.0 PROTECTED <2.5 <2.7 92 PER NCEP ATP III GUIDELINES: OPTIMAL: <100 NEAR OPTIMAL: 100 - 129 BORDERLINE HIGH: 130 - 159 HIGH: 160 - 189 VERY HIGH: >189 93 Concerning GFR GUIDELINES: Normal Function or Mild Renal Disease, if clinically at risk: >/=60mL/min Moderately decreased: 30-59 Severely decreased: 15-29 Renal Failure: <15 Glomerular Filtration Rate (GFR) is estimated based on the MDRD equation, which assumes a steady state for creatinine as recommended by the National Kidney Disease Education Program in conjunction with the National Institutes of Health and the National Kidney Foundation. Clinical conditions in which it may be necessary to measure GFR by using clearance methods include extremes of age and body size, severe malnutrition or obesity, diseases of skeletal muscle, paraplegia or quadriplegia, vegetarian diet, rapidly changing kidney function, and calculation of the dose of potentially toxic drugs that are excreted by the kidneys. 94 Concerning GFR GUIDELINES: Normal Function or Mild Renal Disease, if clinically at risk: >/=60mL/min Moderately decreased: 30-59 Severely decreased: 15-29 Renal Failure: <15 95 FASTING This sample is drawn by:CT 96 PER NCEP ATP III GUIDELINES: RESULTS LOWER THAN 40 MG/DL ARE SUGGESTIVE OF INCREASED RISK FOR CORONARY ARTERY DISEASE. RESULTS > OR=TO 60 MG/DL ARE CONSIDERED A NEGATIVE RISK FACTOR. 97 PER NCEP ATP III GUIDELINES: OPTIMAL: <100 NEAR OPTIMAL: 100 - 129 BORDERLINE HIGH: 130 - 159 HIGH: 160 - 189 VERY HIGH: >189 98 INTERPRETATION OF CHOL-HDL RATIO CHD RISK FEMALE MALE VERY HIGH >8.3 >14.3 HIGH 5.6 - 8.3 6.7 - 14.3 AVERAGE 3.7 - 5.6 4.0 - 6.7 BELOW AVERAGE 2.5 - 3.7 2.7 - 4.0 PROTECTED <2.5 <2.7 99 Concerning GFR GUIDELINES: Normal Function or Mild Renal Disease, if clinically at risk: >/=60mL/min Moderately decreased: 30-59 Severely decreased: 15-29 Renal Failure: <15 Glomerular Filtration Rate (GFR) is estimated based on the MDRD equation, which assumes a steady state for creatinine as recommended by the National Kidney Disease Education Program in conjunction with the National Institutes of Health and the National Kidney Foundation. Clinical conditions in which it may be necessary to measure GFR by using clearance methods include extremes of age and body size, severe malnutrition or obesity, diseases of skeletal muscle, paraplegia or quadriplegia, vegetarian diet, rapidly changing kidney function, and calculation of the dose of potentially toxic drugs that are excreted by the kidneys. 100 Concerning GFR GUIDELINES: Normal Function or Mild Renal Disease, if clinically at risk: >/=60mL/min Moderately decreased: 30-59 Severely decreased: 15-29 Renal Failure: <15 101 PER NCEP ATP III GUIDELINES: RESULTS LOWER THAN 40 MG/DL ARE SUGGESTIVE OF INCREASED RISK FOR CORONARY ARTERY DISEASE. RESULTS > OR=TO 60 MG/DL ARE CONSIDERED A NEGATIVE RISK FACTOR. 102 INTERPRETATION OF CHOL-HDL RATIO CHD RISK FEMALE MALE VERY HIGH >8.3 >14.3 HIGH 5.6 - 8.3 6.7 - 14.3 AVERAGE 3.7 - 5.6 4.0 - 6.7 BELOW AVERAGE 2.5 - 3.7 2.7 - 4.0 PROTECTED <2.5 <2.7 103 PER NCEP ATP III GUIDELINES: OPTIMAL: <100 NEAR OPTIMAL: 100 - 129 BORDERLINE HIGH: 130 - 159 HIGH: 160 - 189 VERY HIGH: >189 104 BEGINNING 11/07/06, PSA VALUES ASSAYED AT [facility] USES AN EIA METHODOLOGY MANUFACTURED BY [employer] FOR USE ON THE DXI ANALYZER. VALUES OBTAINED WITH DIFFERENT ASSAY METHODS OR KITS CAN NOT BE USED INTERCHANGEABLY. SERUM PSA MEASUREMENT IS NOT AN ABSOLUTE TEST FOR MALIGNANCY, THE PSA VALUE SHOULD BE USED IN CONJUNCTION WITH INFORMATION AVAILABLE FROM CLINICAL EVALUATION AND OTHER DIAGNOSTIC PROCEDURES. 105 This sample is drawn by:CT 106 Unless otherwise specified, testing performed by [facility] [address] [place] [address] 107 Unless otherwise specified, testing performed by [facility] [address] [place] [address] 108 FASTING This sample is drawn by:CT 109 Concerning GFR GUIDELINES: Normal Function or Mild Renal Disease, if clinically at risk: >/=60mL/min Moderately decreased: 30-59 Severely decreased: 15-29 Renal Failure: <15 Glomerular Filtration Rate (GFR) is estimated based on the MDRD equation, which assumes a steady state for creatinine as recommended by the National Kidney Disease Education Program in conjunction with the National Institutes of Health and the National Kidney Foundation. Clinical conditions in which it may be necessary to measure GFR by using clearance methods include extremes of age and body size, severe malnutrition or obesity, diseases of skeletal muscle, paraplegia or quadriplegia, vegetarian diet, rapidly changing kidney function, and calculation of the dose of potentially toxic drugs that are excreted by the kidneys. 110 Concerning GFR GUIDELINES: Normal Function or Mild Renal Disease, if clinically at risk: >/=60mL/min Moderately decreased: 30-59 Severely decreased: 15-29 Renal Failure: <15 111 PER NCEP ATP III GUIDELINES: RESULTS LOWER THAN 40 MG/DL ARE SUGGESTIVE OF INCREASED RISK FOR CORONARY ARTERY DISEASE. RESULTS > OR=TO 60 MG/DL ARE CONSIDERED A NEGATIVE RISK FACTOR. 112 INTERPRETATION OF CHOL-HDL RATIO CHD RISK FEMALE MALE VERY HIGH >8.3 >14.3 HIGH 5.6 - 8.3 6.7 - 14.3 AVERAGE 3.7 - 5.6 4.0 - 6.7 BELOW AVERAGE 2.5 - 3.7 2.7 - 4.0 PROTECTED <2.5 <2.7 113 PER NCEP ATP III GUIDELINES: OPTIMAL: <100 NEAR OPTIMAL: 100 - 129 BORDERLINE HIGH: 130 - 159 HIGH: 160 - 189 VERY HIGH: >189 114 BEGINNING 11/07/06, PSA VALUES ASSAYED AT [facility] USES AN EIA METHODOLOGY MANUFACTURED BY [employer] FOR USE ON THE DXI ANALYZER. VALUES OBTAINED WITH DIFFERENT ASSAY METHODS OR KITS CAN NOT BE USED INTERCHANGEABLY. SERUM PSA MEASUREMENT IS NOT AN ABSOLUTE TEST FOR MALIGNANCY, THE PSA VALUE SHOULD BE USED IN CONJUNCTION WITH INFORMATION AVAILABLE FROM CLINICAL EVALUATION AND OTHER DIAGNOSTIC PROCEDURES. 115 Cardiac Risk Factors: HS-CRP Result: Risk Factor <1.0 LOW 1.0 - 3.0 AVERAGE >3.0 HIGH Patients with persistently unexplained, marked elevation of HS-CRP (greater than 10) after repeated testing should be evaluated for non-cardiovascular etiologies. 116 FASTING 117 Concerning GFR GUIDELINES: Normal Function or Mild Renal Disease, if clinically at risk: >/=60mL/min Moderately decreased: 30-59 Severely decreased: 15-29 Renal Failure: <15 Glomerular Filtration Rate (GFR) is estimated based on the MDRD equation, which assumes a steady state for creatinine as recommended by the National Kidney Disease Education Program in conjunction with the National Institutes of Health and the National Kidney Foundation. Clinical conditions in which it may be necessary to measure GFR by using clearance methods include extremes of age and body size, severe malnutrition or obesity, diseases of skeletal muscle, paraplegia or quadriplegia, vegetarian diet, rapidly changing kidney function, and calculation of the dose of potentially toxic drugs that are excreted by the kidneys. 118 Concerning GFR GUIDELINES: Normal Function or Mild Renal Disease, if clinically at risk: >/=60mL/min Moderately decreased: 30-59 Severely decreased: 15-29 Renal Failure: <15 119 % FREE PSA PROBABILITY OF CANCER 0 - 10% 56% 10 - 15% 28% 15 - 20% 20% 20 - 25% 16% GREATER THAN 25% 8% THE FREE PSA PERCENTAGE IS AN AID IN DISTINGUISHING PROSTATE CANCER FROM BENIGN PROSTATIC CONDITIONS IN MEN AGE 50 AND OLDER WITH A TOTAL PSA BETWEEN 3 AND 10 NG/ML AND NEGATIVE DIGITAL RECTAL EXAMINATION FINDINGS. PROSTATIC BIOPSY IS REQUIRED FOR THE DIAGNOSIS OF CANCER. (See: MAKAYLA 1998; 279: [phone]) METHOD USED TO ASSAY BOTH FREE PSA AND TOTAL PSA IS [employer] ACCESS IMMUNOASSAY SYSTEM HYBRITECH FREE PSA AND TOTAL PSA. RESULTS SHOULD NOT BE INTERPRETED ABSOLUTE EVIDENCE FOR THE PRESENCE OR ABSENCE OF MALIGNANT DISEASE. VALUES OBTAINED WITH DIFFERENT ASSAY METHODS OR KITS CANNOT BE USED INTERCHANGEABLY. FREE PSA % GUIDELINES: %FREE PSA PROBABILITY OF CANCER 0-10% 56% 10-15% 28% 15-20% 20% 20-25% 16% GREATER THAN 25% 8% METHOD USED FOR FREE AND TOTAL PSA IS THE [employer] ACCESS IMMUNOASSAY SYSTEM HYBRITECH FREE PSA AND TOTAL PSA. RESULT SHOULD NOT BE INTERPRETED ABSOLUTE EVIDENCE FOR THE PRESENCE OR ABSENCE OF MALIGNA NT DISEASE. VALUES OBTAINED WITH DIFFERENT ASSAY METHODS OR KITS CANNOT BE USED INTERCHANGEABLY. 120 Normal Function or Mild Renal Disease, if clinically at risk: >/=60 mL/ min Moderately decreased: 30-59 Severely decreased: 15-29 Renal Failure: <15 Glomerular Filtration Rate (GFR) is estimated based on the MDRD equation, which assumes a steady state for creatinine as recommended by the National Kidney Disease Education Program in conjunction with the National Institutes of Health and the National Kidney Foundation. Clinical conditions in which it may be necessary to measure GFR by using clearance methods include extremes of age and body size, severe malnutrition or obesity, diseases of skeletal muscle, paraplegia or quadriplegia, vegetarian diet, rapidly changing kidney function, and calculation of the dose of potentially toxic drugs that are excreted by the kidneys. 121 PSA VALUES ASSAYED AT [facility] [employer] USES AN EIA METHODOLOGY MANUFACTURED BY [employer] FOR USE ON THE NEXIA ANALYZER. VALUES OBTAINED WITH DIFFERENT ASSAY METHODS OR KITS CAN NOT BE USED INT ERCHANGEABLY. SERUM PSA MEASUREMENT IS NOT AN ABSOLUTE TEST FOR MALIGNANCY, THE PSA VALUE SHOULD BE USED IN CONJUNCTION WITH INFORMATION AVAILABLE FROM CLINICAL EVALUATION AND OTHER DIAGNOSTIC PROCEDURES. 122 The difference between the most recent result of 9.2 and the current result of 9.6 exceeds the absolute delta value of 0.3 as defined for this test. 123 Normal Function or Mild Renal Disease, if clinically at risk: >/=60 mL/ min Moderately decreased: 30-59 Severely decreased: 15-29 Renal Failure: <15 Glomerular Filtration Rate (GFR) is estimated based on the MDRD equation, which assumes a steady state for creatinine as recommended by the National Kidney Disease Education Program in conjunction with the National Institutes of Health and the National Kidney Foundation. Clinical conditions in which it may be necessary to measure GFR by using clearance methods include extremes of age and body size, severe malnutrition or obesity, diseases of skeletal muscle, paraplegia or quadriplegia, vegetarian diet, rapidly changing kidney function, and calculation of the dose of potentially toxic drugs that are excreted by the kidneys. 124 PSA VALUES ASSAYED AT [facility] [employer] USES AN EIA METHODOLOGY MANUFACTURED BY [employer] FOR USE ON THE NEXIA ANALYZER. VALUES OBTAINED WITH DIFFERENT ASSAY METHODS OR KITS CAN NOT BE USED INT ERCHANGEABLY. SERUM PSA MEASUREMENT IS NOT AN ABSOLUTE TEST FOR MALIGNANCY, THE PSA VALUE SHOULD BE USED IN CONJUNCTION WITH INFORMATION AVAILABLE FROM CLINICAL EVALUATION AND OTHER DIAGNOSTIC PROCEDURES. 125 PSA VALUES ASSAYED AT [facility] USES AN EIA METHODOLOGY MANUFACTURED BY [employer] FOR USE ON THE NEXIA ANALYZER. VALUES OBTAINED WITH DIFFERENT ASSAY METHODS OR KITS CAN NOT BE USED INT ERCHANGEABLY. SERUM PSA MEASUREMENT IS NOT AN ABSOLUTE TEST FOR MALIGNANCY, THE PSA VALUE SHOULD BE USED IN CONJUNCTION WITH INFORMATION AVAILABLE FROM CLINICAL EVALUATION AND OTHER DIAGNOSTIC PROCEDURES. 126 PSA VALUES ASSAYED AT [facility] USES AN EIA METHODOLOGY MANUFACTERED BY [employer] FOR USE ON THE NEXIA ANALYZER. VALUES OBTAINED WITH DIFFERENT ASSAY METHODS OR KITS CAN NOT BE USED INT ERCHANGEABLY. SERUM PSA MEASUREMENT IS NOT AN ABSOLUTE TEST FOR MALIGNANCY, THE PSA VALUE SHOULD BE USED IN CONJUNCTION WITH INFORMATION AVAILABLE FROM CLINICAL EVALUATION AND OTHER DIAGNOSTIC PROCEDURES. 127 PSA VALUES ASSAYED AT [facility] USES AN EIA METHODOLOGY MANUFACTERED BY [employer] FOR USE ON THE NEXIA ANALYZER. VALUES OBTAINED WITH DIFFERENT ASSAY METHODS OR KITS CAN NOT BE USED INT ERCHANGEABLY. SERUM PSA MEASUREMENT IS NOT AN ABSOLUTE TEST FOR MALIGNANCY, THE PSA VALUE SHOULD BE USED IN CONJUNCTION WITH INFORMATION AVAILABLE FROM CLINICAL EVALUATION AND OTHER DIAGNOSTIC PROCEDURES. PSA VALUES ASSAYED AT [facility] USES AN EIA METHODOLOGY MANUFACTERED BY [employer] FOR USE ON THE NEXIA ANALYZER. VALUES OBTAINED WITH DIFFERENT ASSAY METHODS OR KITS CAN NOT BE USED INT ERCHANGEABLY. SERUM PSA MEASUREMENT IS NOT AN ABSOLUTE TEST FOR MALIGNANCY, THE PSA VALUE SHOULD BE USED IN CONJUNCTION WITH INFORMATION AVAILABLE FROM CLINICAL EVALUATION AND OTHER DIAGNOSTIC PROCEDURES. 128 Normal Range: Male: <4.98 Female: <4.45 Procedures Date Code Description Status 12/09/2017 [id number] Colonoscopy Completed 10/13/2017 39810 Measure Blood Oxygen Level Single Determination Completed 12/23/2014 23651 Electrocardiogram Complete Completed 10/23/2013 19426 Electrocardiogram Complete Completed 04/23/2013 15391 Electrocardiogram Complete Completed 11/23/2012 [id number] Colonoscopy Completed 10/02/2012 66981 Electrocardiogram Complete Completed 09/27/2011 27768 Electrocardiogram Complete Completed 09/21/2010 13089 Electrocardiogram Complete Completed 11/14/2009 67975 Electrocardiogram Complete Completed 08/30/2008 66346 Electrocardiogram Complete Completed 08/25/2007 66905 Electrocardiogram Complete Completed 08/26/2006 10921 Electrocardiogram Complete Completed 08/23/2005 74291 Electrocardiogram Complete Completed 04/08/2004 19740 Electrocardiogram Complete Completed 03/29/2003 37171 Electrocardiogram Complete Completed 02/19/2002 40116 Electrocardiogram Complete Completed 02/10/2001 26937 Electrocardiogram Complete Completed Encounters Type Date Location Provider Dx Diagnosis Office Visit 04/14/2018 Ally Perez, E78.2 Mixed hyperlipidemia 8:00a RN [place] [facility] K21.9 Gastro-esophageal reflux disease without esophagitis I10 Essential (primary) hypertension R06.02 Shortness of breath R73.01 Impaired fasting glucose Z68.28 Body mass index (BMI) 28.0-28.9, adult Office Visit 10/12/2017 11:00a Ally Perez, Z00.00 Encntr for general RN [place] [facility] adult medical exam w/o abnormal findings E78.2 Mixed hyperlipidemia K21.9 Gastro-esophageal reflux disease without esophagitis Z11.59 Encounter for screening for other viral diseases R73.01 Impaired fasting glucose I10 Essential (primary) hypertension G47.00 Insomnia, unspecified B35.3 Tinea pedis Office Visit 02/17/2017 2:00p Ally Perez, Z00.00 Encntr for general RN [place] [employer] adult medical exam w/o abnormal findings E78.2 Mixed hyperlipidemia R73.01 Impaired fasting glucose N40.1 Benign prostatic hyperplasia with lower urinary tract symp G47.00 Insomnia, unspecified J30.9 Allergic rhinitis, unspecified Office Visit 08/12/2016 8:00a Ally Perez, Z00.00 Encntr for general RN [place] [employer] adult medical exam w/o abnormal findings E78.2 Mixed hyperlipidemia R23.8 Other skin changes Office Visit 01/29/2016 8:00a Ally Perez, E78.2 Mixed hyperlipidemia RN [place] [facility] R73.01 Impaired fasting glucose N40.1 Enlarged prostate with lower urinary tract symptoms I10 Essential (primary) hypertension R23.8 Other skin changes Z00.01 Encounter for general adult medical exam w abnormal findings Office Visit 07/10/2015 9:20a Emma Thorpe MD I10 Essential ( primary) hypertension E78.2 Mixed hyperlipidemia R73.01 Impaired fasting glucose G60.9 Hereditary and idiopathic neuropathy, unspecified R41.3 Other amnesia Z00.01 Encounter for general adult medical exam w abnormal findings Office Visit 12/23/2014 8:20a Emma Thorpe MD V70.0 Exam (Adult ) General Medical Routine AT Health Care Facility 401.1 Hypertension Benign 272.2 Hyperlipidemia Mixed 790.21 Impaired Fasting Glucose 455.6 Hemorrhoids Unspec W/O Complication 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 530.81 Esophageal Reflux Office Visit 09/24/2014 8:00a Emma Thorpe MD V70.0 Exam (Adult ) General Medical Routine AT Health Care Facility 401.1 Hypertension Benign 272.2 Hyperlipidemia Mixed 790.21 Impaired Fasting Glucose 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 780.93 Memory Loss Office Visit 06/13/2014 9:20a Emma Thorpe MD 272.2 Hyperlipidemia Mixed 401.1 Hypertension Benign 790.21 Impaired Fasting Glucose 356.8 Neuropathy Other Spec Idiopathic Peripheral 719.47 Pain Joint Ankle & Foot V70.0 Exam (Adult) General Medical Routine AT Health Care Facility Office Visit 03/05/2014 8:20a Emma Thorpe MD 719.47 Pain Joint Ankle & Foot 272.2 Hyperlipidemia Mixed 401.1 Hypertension Benign 790.21 Impaired Fasting Glucose V04.89 Need For Prophylactic Vaccination & Inoculation Other Virus V70.0 Exam (Adult) General Medical Routine AT [facility] 356.8 Neuropathy Other Spec Idiopathic Peripheral V03.82 Streptococcus Pneumoniae Vaccination Spec Other Office Visit 10/23/2013 8:00a Emma Thorpe MD 719.47 Pain Joint Ankle & Foot 356.8 Neuropathy Other Spec Idiopathic Peripheral 790.21 Impaired Fasting Glucose 272.2 Hyperlipidemia Mixed 401.1 Hypertension Benign 600.00 Hypertrophy Prostate W/O Urinary Obstruction & Other Luts V70.0 Exam (Adult) General Medical Routine AT [facility] 530.81 Esophageal Reflux Office Visit 04/23/2013 8:45a Tenzin Slaughter MD V70.0 Exam ( Adult) General Medical Routine AT [facility] 401.1 Hypertension Benign 272.2 Hyperlipidemia Mixed 790.21 Impaired Fasting Glucose Office Visit 10/02/2012 8:00a Tenzin Slaughter MD V70.0 Exam ( Adult) General Medical Routine AT Health [facility] 401.1 Hypertension Benign 272.2 Hyperlipidemia Mixed 356.8 Neuropathy Other Spec Idiopathic Peripheral V06.1 Zwszkftmye-Czciiiz-Oumucife Combined (DTaP) 530.81 Esophageal Reflux 788.43 Nocturia 600.01 Hypertrophy Benign Of Prostate With Urinary Obstruction 790.21 Impaired Fasting Glucose V04.89 Need For Prophylactic Vaccination & Inoculation Other Virus Office Visit 03/27/2012 8:00a Tenzin Slaughter MD 401.1 Hypertension Benign 272.2 Hyperlipidemia Mixed 356.8 Neuropathy Other Spec Idiopathic Peripheral Office Visit 09/27/2011 8:00a Tenzin Slaughter MD V70.0 Exam ( Adult) General Medical Routine AT [facility] 401.1 Hypertension Benign 272.2 Hyperlipidemia Mixed 600.00 Hypertrophy Prostate W/O Urinary Obstruction & Other Luts Office Visit 03/22/2011 8:00a Tenzin Slaughter MD 401.1 Hypertension Benign 272.2 Hyperlipidemia Mixed 530.81 Esophageal Reflux Office Visit 09/21/2010 8:00a Tenzin Slaughter MD V70.0 Exam ( Adult) General Medical Routine AT [facility] 401.1 Hypertension Benign 272.2 Hyperlipidemia Mixed 787.20 Dysphagia, Unspecified 719.47 Pain Joint Ankle & Foot 600.00 Hypertrophy Prostate W/O Urinary Obstruction & Other Luts Office Visit 03/27/2010 8:30a Tenzin Slaughter MD 401.1 Hypertension Benign 272.2 Hyperlipidemia Mixed 791.5 Glycosuria 214.1 Lipoma Other Skin And Subcutaneous Tissue Office Visit 11/28/2009 8:50a Tenzin Slaughter, 789.09 Pain Abdominal Other MD Spec Site Office Visit 11/14/2009 9:00a Tenzin Slaughter V70.0 Exam (Adult ) General MD Medical Routine AT [facility] 401.1 Hypertension Benign 272.2 Hyperlipidemia Mixed 600.00 Hypertrophy Prostate W/O Urinary Obstruction & Other Luts 724.2 Lumbago 789.09 Pain Abdominal Other Spec Site V58.69 Medications [facility] (Current) Use Encounter 791.5 Glycosuria 455.5 Hemorrhoids External W/ Other Complications Office Visit 08/30/2008 9:20a Tenzin Slaughter MD V70.0 Exam ( Adult) General Medical Routine AT [facility] 272.2 Hyperlipidemia Mixed 401.1 Hypertension Benign 600.00 Hypertrophy Prostate W/O Urinary Obstruction & Other Luts 599.70 Hematuria, Unspecified Office Visit 08/25/2007 9:00a Tenzin Slaughter MD V70.0 Exam ( Adult) General Medical Routine AT [facility] 401.1 Hypertension Benign 272.2 Hyperlipidemia Mixed 455.3 Hemorrhoids External W/O Complication Office Visit 05/12/2007 9:00a Tenzin Slaughter MD 401.1 Hypertension Benign 272.2 Hyperlipidemia Mixed 477.0 Rhinitis Allergic Due To Pollen Office Visit 08/26/2006 11:20a Tenzin Slaughter MD V70.0 Exam ( Adult) General Medical Routine AT [facility] 401.1 Hypertension Benign 272.2 Hyperlipidemia Mixed 780.50 Sleep Disturbance Unspec, Non-Covered 600.00 Hypertrophy Prostate W/O Urinary Obstruction & Other Luts Office Visit 08/23/2005 8:50a Tenzin Slaughter, 272.2 Hyperlipidemia Mixed V70.0 Exam (Adult) General Medical Routine AT [facility] 780.50 Sleep Disturbance Unspec, Non-Covered 600.00 Hypertrophy Prostate W/O Urinary Obstruction & Other Luts 401.1 Hypertension Benign 078.10 Viral Warts Unspec V76.9 Screening Malignant Neoplasm Unspec 455.3 Hemorrhoids External W/O Complication Office Visit 04/08/2004 2:40p Tenzin Slaughter MD 401.1 Hypertension Benign 272.2 Hyperlipidemia Mixed 455.0 Hemorrhoids Internal W/O Complication Office Visit 03/29/2003 2:50p Tenzin Slaughter MD 477.0 Rhinitis Allergic Due To Pollen 272.2 Hyperlipidemia Mixed 401.1 Hypertension Benign 600.0 Hypertrophy Benign Of Prostate Office Visit 02/19/2002 8:00a Tenzin Slaughter MD 401.1 Hypertension Benign 272.2 Hyperlipidemia Mixed 477.0 Rhinitis Allergic Due To Pollen 600.0 Hypertrophy Benign Of Prostate Office Visit 02/10/2001 11:20a Tenzin Slaughter MD Plan of Treatment Future Appointment(s):10/13/2018 8:20 am - Ally Gurrola, RN [place] [employer] at [id number]/2018 - Ally Gurrola, RN [place] FNPL50.0 Allergic urticariaReferral: Allergy & EvxdsspasyB67.1 Localized swelling, mass and lump, neckNew Xrays: Neck, Soft Tissues, Ordered: 08/31/18Z68.28 Body mass index (BMI) 28.0-28.9, adult
[2018-09-08 11:11] LABS: ABS Basophils 0 10^3/ul (0-0.2); ABS Eosinophils 0.1 10^3/ul (0-0.6); ABS Lymphocytes 1.5 10^3/ul (1.0-4.8); ABS Neutrophils 5.3 10^3/ul (1.5-7.7); ABS Nucleated RBC 0 10^3/ul; Eosinophil % 1.2 %; Hematocrit 42 % (42-52); Hemoglobin 14.2 g/dl (14.0-18.0); Lymphocyte % 18.9 %; Mean Corpuscular HGB Conc 34 g/dl (31-36); Mean Corpuscular Hemoglobin 29 pg (27-31); Mean Corpuscular Volume 84 fL (80-94); Nucleated Red Blood Cells % 0; Platelet Count 176 10^3/ul (150-450); Red Blood Count 4.92 10^6/ul (4.00-5.40); Red Cell Distribution Width 14 % (10.5-15); White Blood Count 7.9 10^3/ul (3.5-10.8)
[2018-09-08 11:30] LABS: Albumin 4.1 g/dL (3.2-5.2); Albumin/Globulin Ratio 1.6 (1-3); BUN/Creatinine Ratio 11.4 (8-20); C Reactive Protein 20.21 mg/L (<8.01); Calcium 9.3 mg/dL (8.6-10.3); EGFR Non-African American 71.1 (>60); Globulin 2.6 g/dL (2-4); Total Bilirubin 0.6 mg/dL (0.2-1.0); Total Protein 6.7 g/dL (6.4-8.9)
[2018-09-08 12:16] LABS: Erythrocyte Sed Rate 24 mm/Hr (0-20)
[2018-09-08 13:44] VITALS: BP 147/94
--- NOTE | 2018-09-09 05:51 | ED ---
Neck Pain - HPI Summary HPI Summary: Patient is a 62-year-old male presenting to the ED with 2 concerns. He states over the past several weeks he has had a growing mass just above the left clavicle alongside potentially an enlarged lymph node just superior to mass. He is also complaining of 1.5 weeks of hives which start in the evening and last for several hours with severe pruritus. History of Molina's esophagus, hypertension, hypercholesterolemia, hyperglycemia without diabetes. He denies any fevers, sweats, chills. He denies any cough, congestion, rhinorrhea or other cold symptoms. He was seen in the ED for intense pruritus secondary to hives and was given famotidine without much improvement. He has also been taking Benadryl which improves his symptoms. He denies any change of lotions, soaps, clothing detergent or environment. is at bedside. states they have changed the sheets thinking this could be contributory, symptoms remain. He states today he is more concerned over the mass over his left clavicle. He endorses pain only on palpation. Continues to be able to move and rotate about the extremity without discomfort. Denies any trauma or known injury to the area. He had followed up with his PCP who recommended him come to the ED if symptoms worsen or the mass becomes larger. 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 Onset/Duration Of Injury/Symptoms: Weeks Timing: Constant Onset/Duration: Sudden Onset Severity Initially: Moderate Severity Currently: Moderate Pain Intensity: 0 Pain Scale Used: 0-10 Numeric Location: Discrete At: - left supraclaviular area Character: Dull - only with palpation Aggravating Factors: Nothing Alleviating Factors: Nothing - Risk Factors Meningitis Risk Factors: Negative - Allergies/Home Medications Allergies/Adverse Reactions: Allergies Allergy/AdvReac Type Severity Reaction Status Date / Time Penicillins Allergy Severe Unknown Verified 09/08/18 09:54 Reaction Details Home Medications: Home Medications diphenhydrAMINE HCl [Benadryl Allergy] 25 mg PO SEE INSTRUCTIONS PRN 09/08/18 [ History Confirmed 09/08/18] PMH/Surg Hx/FS Hx/Imm Hx Previously Healthy: Yes Endocrine/Hematology History: Denies: Hx Diabetes - PRE-DM Cardiovascular History: Reports: Hx Hypertension, Other Cardiovascular Problems/ Disorders - HLD - Immunization History Hx Pertussis Vaccination: No Immunizations Up to Date: Yes Infectious Disease History: No Infectious Disease History: Denies: Traveled Outside the [place] in Last 30 Days - Family History Known Family History: Positive: Cardiac Disease, Hypertension, Other - Dementia (mild and late) - Social History Occupation: Employed Full-time Lives: With Family Alcohol Use: Rare Hx Substance Use: No Substance Use Type: Reports: None Hx Tobacco Use: Yes Smoking Status (MU): Former Smoker Review of Systems Constitutional: Negative Negative: Fever, Chills, Fatigue, Skin Diaphoresis Negative: Palpitations, Chest Pain Negative: Shortness Of Breath, Cough Genitourinary: Negative Positive: no symptoms reported, see HPI Negative: Arthralgia, Myalgia Positive: Other - intense hives Neurological: Negative All Other Systems Reviewed And Are Negative: Yes Physical Exam Triage Information Reviewed: Yes Vital Signs On Initial Exam: Initial Vitals Temp Pulse Resp BP Pulse Ox 98.4 F 98 20 150/74 98 09/08/18 09:15 09/08/18 09:15 09/08/18 09:15 09/08/18 09:15 09/08/18 09:15 Vital Signs Reviewed: Yes Appearance: Positive: Well-Appearing, Well-Nourished Skin: Positive: Warm, Skin Color Reflects Adequate Perfusion, Other - hives - none curertnly on PE Head/Face: Positive: Normal Head/Face Inspection Eyes: Positive: EOMI, RACHEL, Conjunctiva Clear ENT: Positive: Pharynx normal. Negative: Pharyngeal erythema, Tonsillar swelling, Tonsillar exudate, Hoarse voice, Dental tenderness, Sinus tenderness Neck: Positive: Tenderness @ - left supraclavicular mass, Enlarged Nodes @ - left supraclavicular without cervical anterior LAD, Other: - tenderness Respiratory/Lung Sounds: Positive: Clear to Auscultation, Breath Sounds Present. Negative: Decreased Breath Sounds, Stridor, Tracheal Deviation, Wheezes, Unable to speak in full sentences Cardiovascular: Positive: RRR, Pulses are Symmetrical in both Upper and Lower Extremities. Negative: Leg Edema Left, Leg Edema Right Musculoskeletal: Positive: Normal, Strength/ROM Intact Neurological: Positive: Sensory/Motor Intact, Alert, Oriented to Person Place, Time, Speech Normal Psychiatric: Positive: Normal, Affect/Mood Appropriate AVPU Assessment: Alert Diagnostics - Vital Signs Vital Signs Temp Pulse Resp BP Pulse Ox 09/08/18 13:42 99.6 F 88 17 147/94 95 09/08/18 13:38 141/88 09/08/18 13:30 88 147/94 96 09/08/18 13:08 88 152/92 96 09/08/18 13:00 85 96 09/08/18 12:39 84 97 09/08/18 12:38 81 145/88 95 09/08/18 09:15 98.4 F 98 20 150/74 98 - Laboratory Lab Results: Lab Results 09/08/18 09/08/18 Range/Units 10:55 10:55 WBC 7.9 (3.5-10.8) 10^3/ul RBC 4.92 (4.00-5.40) 10^6/ul Hgb 14.2 (14.0-18.0) g/dl Hct 42 (42-52) % MCV 84 (80-94) fL MCH 29 (27-31) pg MCHC 34 (31-36) g/dl RDW 14 (10.5-15) % Plt Count 176 (150-450) 10^3/ul MPV 8.0 (7.4-10.4) fL Neut % (Auto) 66.3 % Lymph % (Auto) 18.9 % Davidson % (Auto) 13.1 % Eos % (Auto) 1.2 % Baso % (Auto) 0.5 % Absolute Neuts (auto) 5.3 (1.5-7.7) 10^3/ul Absolute Lymphs (auto) 1.5 (1.0-4.8) 10^3/ul Absolute Monos (auto) 1.0 H (0-0.8) 10^3/ul Absolute Eos (auto) 0.1 (0-0.6) 10^3/ul Absolute Basos (auto) 0 (0-0.2) 10^3/ul Absolute Nucleated RBC 0 10^3/ul Nucleated RBC % 0 ESR 24 H (0-20) mm/Hr Sodium 136 (135-145) mmol/L Potassium 4.0 (3.5-5.0) mmol/L Chloride 102 (101-111) mmol/L Carbon Dioxide 26 (22-32) mmol/L Anion Gap 8 (2-11) mmol/L BUN 12 (6-24) mg/dL Creatinine 1.05 (0.67-1.17) mg/dL Est GFR ( Amer) 86.0 (>60) Est GFR (Non-Af Amer) 71.1 (>60) BUN/Creatinine Ratio 11.4 (8-20) Glucose 113 H (70-100) mg/dL Calcium 9.3 (8.6-10.3) mg/dL Total Bilirubin 0.60 (0.2-1.0) mg/dL AST 15 (13-39) U/L ALT 15 (7-52) U/L Alkaline Phosphatase 73 (34-104) U/L C-Reactive Protein 20.21 H (<8.01) mg/L Total Protein 6.7 (6.4-8.9) g/dL Albumin 4.1 (3.2-5.2) g/dL Globulin 2.6 (2-4) g/dL Albumin/Globulin Ratio 1.6 (1-3) Result Diagrams: 09/08/18 10:55 09/08/18 10:55 Lab Statement: Any lab studies that have been ordered have been reviewed, and results considered in the medical decision making process. Neck Course/Dx - Course Course Of Treatment: Patient is evaluated for intense pruritic hives which are diffuse to the body, happen only in the evening and are improved with Benadryl. He denies any known allergies other than penicillin which she has not been taking. He is also endorsing concern over a left supraclavicular mass. On physical examination, patient appears well, nontoxic and vital signs are stable. No airway compromise, no pharyngeal erythema. Lungs CTA, RRR. There is a mass measuring 2.5 x 2 cm just above the left mid clavicular line with associated enlarged lymph nodes. No supraclavicular lymphadenopathy to the right. CT soft tissue neck with contrast obtained. Impression: Left lower cervical lymphadenopathy, including the palpable mass along the left clavicle in the absence of history of known malignancy, recommend consideration of tissue sampling. Discussion of results with patient and . Attempted to contact patient's PCP office to secure an appointment for a follow-up however office was clossed. Prefer PCP appt first and my recommendation to possible ENT vs oncology vs. surgery for biopsy to be determined by PCP. Patient states he will call PCP office upon opening and will secure an appointment. As he appears well, he will be discharged with a supraclavicular mass in hives of unknown reaction and will follow up with PCP. He understands return precautions if he develops a fever or if the mass enlarges. He will also be discharged with 5 days steroid for hives. - Diagnoses Differential Dx/HQI/PQRI: Positive: Other - supraclavicular mass Provider Diagnoses: Hives Discharge - Sign-Out/Discharge Documenting (check all that apply): Patient Departure - Discharge Plan Condition: Stable Disposition: HOME Prescriptions: predniSONE TAB* [Deltasone TAB*] 50 mg PO DAILY #5 tab MDD 1 Referrals: Ally Gurrola [Primary Care Provider] - 1 Day Additional Instructions: Please follow up with PCP as soon as possible Continue famotidine and benadryl during the day for symptoms of hives If you develop fevers - RETURN TO THE ED - Billing Disposition and Condition Condition: STABLE Disposition: Home
== END | disposition home or self-care (01) ==
LOC: ED 09:02
DX: L50.9 Urticaria, unspecified (principal); Z87.891 Personal history of nicotine dependence
CPT/HCPCS: 36415; 70491; 80053; 85025; 85652; 86140; 99283; Q9967

== ENCOUNTER 2024-01-16 13:20 | Inpatient (IN) ==
[2024-01-16] MEDS: Lactated Ringers 1000 ml BAG 1,000 ML IV ONE (13:32)
[2024-01-16 13:54] LABS: ABS Basophils 0.1 10^3/uL (0.0-0.1); ABS Eosinophils 0.2 10^3/uL (0.0-0.5); ABS Lymphocytes 1.8 10^3/uL (1.0-4.8); ABS Monocytes 0.9 10^3/uL (0.0-1.1); ABS Neutrophils 7.6 10^3/uL (1.5-7.6); ABS Nucleated RBC 0.01 10^3/ul; Hemoglobin 11.9 g/dL (13.2-16.3); Lymphocyte % 17.4 %; Mean Corpuscular Hemoglobin 29.5 pg (27-33); Mean Corpuscular Hgb Conc 33.9 g/dL (31-36); Mean Corpuscular Volume 86.9 fL (80-97); Mean Platelet Volume 8.7 fL (7.5-11.2); Nucleated Red Blood Cells % 0.1 %/100WBC (0.0-0.8); Platelet Count 215 10^3/uL (150-450); Red Blood Count 4.02 10^6/uL (4.06-5.63); Red Cell Distribution Width 14.1 % (12-17); White Blood Count 10.6 10^3/uL (3.6-10.2)
[2024-01-16] MEDS ORDERED: Naloxone 0.4 mg VIAL 0.4 mg/ml 1 ml VIAL IV PUSH PRN (13:54)
[2024-01-16] MEDS ORDERED: Flumazenil 0.5 mg/5 ml 0.1 MG/ML 5 ml VIAL IV PRN (13:54)
[2024-01-16] MEDS ORDERED: Midazolam 5 mg/5 ml VIAL 1 mg/ml 5 ml VIAL (5 mg) ONE (14:01)
[2024-01-16] MEDS ORDERED: fentaNYL 100 mcg/2 ml 50 MCG/ML VIAL ONE (14:01)
[2024-01-16] MEDS ORDERED: Heparin 1,000 UNIT/ML 10 ml (10,000 UNITS) CATHLAB/DIALYSIS ONE ×2 (14:01→14:28)
[2024-01-16] MEDS ORDERED: Lidocaine 1% MPF 5 ML VIAL ONE (14:02)
[2024-01-16] MEDS ORDERED: Heparin 2 UNITS/ML 1000 mls 2,000 ML IV ONE (14:02)
[2024-01-16] MEDS ORDERED: Iohexol 350 (CONTRAST) 200 ML MDV IV ONE (14:02)
[2024-01-16] MEDS ORDERED: nitroGLYCERIN DRIP 25,000 MCG/250 ML BTL ONE (14:02)
[2024-01-16] MEDS ORDERED: niCARdipine 0.1MG/ML IVPREMIX 20 MG/200 ML BAG IV ONE (14:03)
[2024-01-16] MEDS ORDERED: Heparin 2 UNITS/ML 1000 mls 1,000 ML IV ONE (14:10)
[2024-01-16 14:18] LABS: High Sens Troponin Baseline 60 pg/mL (<20)
[2024-01-16] MEDS ORDERED: DOPAMINE CENTR ONE (14:39)
[2024-01-16] MEDS ORDERED: Eptifibatide IV (Load dose) 2 MG/ML 10 ml VIAL ONE ×2 (14:44→14:54)
[2024-01-16 14:45] LABS: ALT 20 U/L (7-52); Albumin 3.4 g/dL (3.2-5.2); Albumin/Globulin Ratio 1.9 (1-3); Alkaline Phosphatase 43 U/L (35-149); Anion Gap 7 mmol/L (2-16); Blood Urea Nitrogen 17 mg/dL (6-24); CO2 Carbon Dioxide 23 mmol/L (22-32); Calcium 7.4 mg/dL (8.6-10.3); Chloride 110 mmol/L (101-111); Globulin 1.8 g/dL (2-4); Glucose 140 mg/dL (70-100); Lipase 25 U/L (11.0-82.0); Sodium 140 mmol/L (135-145); Total Bilirubin 0.4 mg/dL (0.2-1.0); Total Protein 5.2 g/dL (6.4-8.9); eGFR CKD-EPI 59.1 (>60)
[2024-01-16] MEDS ORDERED: Prasugrel 10 mg TAB (NF) ONE (15:02)
[2024-01-16] MEDS ORDERED: oxyCODONE/Acetamin 5/325 mg TAB PO PRN (15:19)
[2024-01-16] MEDS ORDERED: Ondansetron 4 mg VIAL 2 MG/ML 2 ml VIAL IV PRN (15:19)
[2024-01-16 15:32] LABS: Magnesium 1.6 mg/dL (1.9-2.7); Potassium Redraw 3.6 mmol/L (3.5-5.0)
[2024-01-16 15:38] LABS: High Sensitivity Troponin 1 Hr 201 pg/mL (<20)
[2024-01-16 15:43] LABS: LDL Cholesterol Direct 83 mg/dL
[2024-01-16] MEDS: Magnesium Sulfate 2 gm BAG 2 GM/50 ML BAG IVPB ONE (17:41)
[2024-01-16] MEDS: Iodixanol (CONTRAST) 320 MG/ML 100 ML SDV IV ONE (18:04)
[2024-01-16] MEDS: fentaNYL 100 mcg/2 ml 50 MCG/ML VIAL IV SLOW PU ONE (18:04)
[2024-01-16] MEDS: Midazolam 10 mg/10 ml VIAL 1 mg/ml 10 ml VIAL (10 mg) IV SLOW PU ONE (18:04)
[2024-01-16] MEDS: Heparin - STEMI 5,000 UNITS/ML 1 ml VIAL IV ONE (18:05)
[2024-01-17 03:42] LABS: ABS Basophils 0.1 10^3/uL (0.0-0.1); ABS Eosinophils 0.2 10^3/uL (0.0-0.5); ABS Lymphocytes 1.5 10^3/uL (1.0-4.8); ABS Monocytes 0.9 10^3/uL (0.0-1.1); ABS Nucleated RBC 0.01 10^3/ul; Hematocrit 35.5 % (38-53); Hemoglobin 12.3 g/dL (13.2-16.3); Lymphocyte % 14.3 %; Mean Corpuscular Hemoglobin 29.6 pg (27-33); Mean Corpuscular Hgb Conc 34.7 g/dL (31-36); Mean Corpuscular Volume 85.4 fL (80-97); Mean Platelet Volume 8.6 fL (7.5-11.2); Nucleated Red Blood Cells % 0.1 %/100WBC (0.0-0.8); Platelet Count 200 10^3/uL (150-450); Red Blood Count 4.15 10^6/uL (4.06-5.63); Red Cell Distribution Width 14.1 % (12-17); White Blood Count 10.8 10^3/uL (3.6-10.2)
[2024-01-17 04:10] LABS: Albumin/Globulin Ratio 2.1 (1-3); Calcium 8.9 mg/dL (8.6-10.3); Creatinine, Serum 1.28 mg/dL (0.67-1.17); Globulin 1.9 g/dL (2-4); HDL Cholesterol 32.2 mg/dL; Potassium 3.8 mmol/L (3.5-5.0); Total Bilirubin 0.8 mg/dL (0.2-1.0); Total Protein 5.9 g/dL (6.4-8.9); eGFR CKD-EPI 60.2 (>60)
[2024-01-17 04:11] LABS: Calcium 8.8 mg/dL (8.6-10.3); Creatinine, Serum 1.3 mg/dL (0.67-1.17); Magnesium 2.2 mg/dL (1.9-2.7); Potassium 3.9 mmol/L (3.5-5.0); eGFR CKD-EPI 59.1 (>60)
[2024-01-17 06:19] LABS: Urine Appearance Clear; Urine Bilirubin Negative (Negative); Urine Blood Negative (Negative); Urine Color Light-Yellow; Urine Glucose 4+ (>=1000 mg/dL) (Negative); Urine Ketones Negative (Negative); Urine Nitrite Negative (Negative); Urine Protein Negative (Negative); Urine Specific Gravity 1.038 (1.002-1.030); Urine Urobilinogen Negative (Negative)
[2024-01-17] MEDS: Potassium Chlor 20 meq TAB.ER PO ONE ×2 (07:43→08:48)
[2024-01-17] MEDS: CMCS: Prasugrel 10 mg TAB (NF) PO SCH (07:43)
[2024-01-17] MEDS: Empagliflozin 25 MG TAB PO SCH (08:22)
[2024-01-17] MEDS ORDERED: Sulfur Hexaflouride MICROSPHR 25 MG VIAL ONE (08:43)
[2024-01-17] MEDS: Empagliflozin 25 MG TAB PO ONE (08:46)
[2024-01-17 09:09] LABS: Free T3 3.48 pg/mL (2.5-3.9); TSH Ultra Thyroid Stim Horm 1.83 mcIU/mL (0.34-5.60)
[2024-01-17 09:13] LABS: Free T4 0.93 ng/dL (0.61-1.12)
[2024-01-17 10:28] LABS: Magnesium 2.3 mg/dL (1.9-2.7)
[2024-01-18 06:10] LABS: ABS Basophils 0.1 10^3/uL (0.0-0.1); ABS Eosinophils 0.2 10^3/uL (0.0-0.5); ABS Lymphocytes 1.2 10^3/uL (1.0-4.8); ABS Monocytes 0.8 10^3/uL (0.0-1.1); ABS Neutrophils 7.2 10^3/uL (1.5-7.6); Eosinophil % 2.1 %; Hematocrit 37.1 % (38-53); Hemoglobin 12.6 g/dL (13.2-16.3); Lymphocyte % 12.8 %; Mean Corpuscular Hemoglobin 29.4 pg (27-33); Mean Corpuscular Volume 86.3 fL (80-97); Mean Platelet Volume 8.6 fL (7.5-11.2); Platelet Count 194 10^3/uL (150-450); Red Cell Distribution Width 14.2 % (12-17); White Blood Count 9.5 10^3/uL (3.6-10.2)
[2024-01-18 06:46] LABS: Calcium 8.9 mg/dL (8.6-10.3); Creatinine, Serum 1.35 mg/dL (0.67-1.17); Magnesium 2.4 mg/dL (1.9-2.7); Potassium 4.3 mmol/L (3.5-5.0); eGFR CKD-EPI 56.5 (>60)
[2024-01-18] MEDS: Empagliflozin 25 MG TAB PO SCH (08:54)
[2024-01-18 11:33] VITALS: BP 102/60
== END 2024-01-18 12:36 | disposition home or self-care (01) | DRG 322 ==
LOC: ED 13:20 → CHICATH 14:10 → ICU 15:19
PROVIDERS: ADMIT Emergency Medicine; ATTEND Internal Medicine